=== PATIENT | female | born 2000 | race African-American/Black ===

== ENCOUNTER 2018-05-23 13:29 | Emergency (ER) | payer MEDICAID ==
[~2018-05-23] VITALS: Ht 165.1 cm; Wt 59.0 kg
[2018-05-23 13:30] VITALS: BP 128/67
--- NOTE | 2018-05-23 13:30 | NUR ---
ED Nurse Note: pt brought in by EMS per EMS report pt was actively seizing but unable to state how long, tonic clonic activity noted. EMS states that pt does have aura prior to having seizure. pt hx seizure used to take keppra but now takes different medication but unable to state which and has been noncompliant with sz meds for about three wks. last known sz was three wks ago. pt AA&ox4, gcs=15, +trinh, skin warm and dry, resp even and unlabored on RA, airway intact, -n/v/d, strength BLE/BUE +5. Will cont monitor. NSR on monitoring and evaluation advisor. pt advised to notify staff if needed assist, warm blanket provided for comfort.
[2018-05-23] MEDS ORDERED: Lacosamide 50mg tablet ORAL STA (13:53)
[2018-05-23 14:00] LABS: BASOPHILS % (AUTO) 1.8 % (0.0-2.0); EOSINOPHILS % (AUTO) 0.2 % (0.0-3.0); HEMATOCRIT 40.9 % (37.0-47.0); HEMOGLOBIN 12.7 G/DL (12.0-16.0); LYMPHOCYTES % (AUTO) 15.6 % (20.0-45.0); MEAN CORPUSCULAR VOLUME 85 FL (80-99); MONOCYTES % (AUTO) 4.3 % (1.0-10.0); NEUTROPHILS % (AUTO) 78.1 % (45.0-75.0); PLATELET COUNT 345 K/UL (150-450); RED BLOOD COUNT 4.82 M/UL (4.20-5.40); RED CELL DISTRIBUTION WIDTH 18.7 % (11.6-14.8); WHITE BLOOD COUNT 9.3 K/UL (4.8-10.8)
[2018-05-23] MEDS ORDERED: LORazepam Inj 2mg/ml 1ml IV ONE (14:00)
--- NOTE | 2018-05-23 14:01 | Emergency Room Report ---
History of Present Illness General Chief Complaint: Seizure Source: Patient Present Illness HPI Patient presents after generalized tonic clonic seizure. She says she's been not completely compliant with her medication. She apparently is taking Vimpat at this time. She's complaining about a headache. She did not bite her tongue and she denies any other pain in her body. She doesn't think she is at this time. She denies any drugs. The patient's been feeling depressed to get she's not working at this time. She 's been tearful and denies suicidal or homicidal ideation. She feels safe at home. She denies fevers, chills, nausea, vomiting, diarrhea, chest pain, shortness of breath, cough. Allergies: Coded Allergies: AMOXICILLIN (Verified Allergy, Unknown, 05/23/18) PENICILLINS (Verified Allergy, Unknown, 05/23/18) Patient History Past Medical History: see triage record Social History: Reports: drug use - THC; Denies: alcohol use Social History Narrative at home with family Last Menstrual Period: unknown Reviewed Nursing Documentation: PMH: Agreed; PSxH: Agreed Nursing Documentation-PMH Past Medical History: No History, Except For Hx Seizures: Yes Review of Systems All Other Systems: negative except mentioned in HPI Physical Exam Vital Signs Date Time Temp Pulse Resp B/P (MAP) Pulse Ox O2 Delivery O2 Flow Rate FiO2 05/23/18 13:23 97.9 73 16 130/90 97 Room Air Sp02 EP Interpretation: reviewed, normal General Appearance: well appearing, no apparent distress, GCS 15 Head: normocephalic, atraumatic Eyes: bilateral eye normal inspection, bilateral eye PERRL, bilateral eye EOMI ENT: moist mucus membranes - no oral trauma Neck: supple, no bony tend Respiratory: lungs clear, normal breath sounds Cardiovascular #1: regular rate, rhythm Cardiovascular #2: 2+ radial (R) Gastrointestinal: normal inspection, normal bowel sounds, non tender, no mass, non-distended Musculoskeletal: back normal, normal range of motion Neurologic: alert, oriented x3, ventilated rib fitter III-XII nml as tested, motor strength/tone normal, DTRs symmetric, sensory intact, cerebellar normal, speech normal Psychiatric: no suicidal/homicidal ideation, depressed affect Skin: normal inspection, warm/dry Medical Decision Making Diagnostic Impression: Primary Impression: Seizure ER Course Patient presents after having a generalized seizure with questionable compliance. Differential includes subtherapeutic medication level, electrolyte imbalance, other etiologies are less likely. Patient be evaluated with labs. CT is not indicated based on her neurologic exam at this time. Also her chest is clear and chest x-ray is not indicated. The patient is placed on a nuclear monitoring technician will be given a dose of Ativan and also Vimpat. She will also be given a dose of Tylenol for the headache. EKG without injury. Labs unremarkable. Patient improved with treatment. Headache is resolved. Repeat neurologic exam grossly normal. Discussed need for making sure she is compliant with her medications. She is aware of seizure precautions. Patient stable for outpatient observation and treatment. Laboratory Tests Test 05/23/18 13:45 05/23/18 16:19 White Blood Count 9.3 K/UL (4.8-10.8) Red Blood Count 4.82 M/UL (4.20-5.40) Hemoglobin 12.7 G/DL (12.0-16.0) Hematocrit 40.9 % (37.0-47.0) Mean Corpuscular Volume 85 FL (80-99) Mean Corpuscular Hemoglobin 26.3 PG (27.0-31.0) L Mean Corpuscular Hemoglobin Concent 31.0 G/DL (32.0-36.0) L Red Cell Distribution Width 18.7 % (11.6-14.8) H Platelet Count 345 K/UL (150-450) Mean Platelet Volume 7.0 FL (6.5-10.1) Neutrophils (%) (Auto) 78.1 % (45.0-75.0) H Lymphocytes (%) (Auto) 15.6 % (20.0-45.0) L Monocytes (%) (Auto) 4.3 % (1.0-10.0) Eosinophils (%) (Auto) 0.2 % (0.0-3.0) Basophils (%) (Auto) 1.8 % (0.0-2.0) Sodium Level 135 MMOL/L (136-145) L Potassium Level 4.3 MMOL/L (3.5-5.1) Chloride Level 98 MMOL/L (98-107) Carbon Dioxide Level 26 MMOL/L (21-32) Anion Gap 11 mmol/L (5-15) Blood Urea Nitrogen 11 mg/dL (7-18) Creatinine 0.7 MG/DL (0.55-1.30) Estimate Glomerular Filtration Rate > 60 mL/min (>60) Glucose Level 130 MG/DL (74-106) H Calcium Level 9.2 MG/DL (8.5-10.1) Total Bilirubin 0.4 MG/DL (0.2-1.0) Aspartate Amino Transferase (AST) 17 U/L (15-37) Alanine Aminotransferase (ALT) 12 U/L (12-78) Alkaline Phosphatase 68 U/L (46-116) Total Creatine Kinase 77 U/L (26-308) Total Protein 8.4 G/DL (6.4-8.2) H Albumin 4.1 G/DL (3.4-5.0) Globulin 4.3 g/dL Albumin/Globulin Ratio 1.0 (1.0-2.7) Valproic Acid Level < 3 MCG/ML (50-100) L Urine Color Yellow Urine Appearance Slightly cloudy Urine pH 6.5 (4.5-8.0) Urine Specific [place] 1.010 (1.005-1.035) Urine Protein Negative (NEGATIVE) Urine Glucose (UA) Negative (NEGATIVE) Urine Ketones 3+ (NEGATIVE) H Urine Blood Negative (NEGATIVE) Urine Nitrite Negative (NEGATIVE) Urine Bilirubin Negative (NEGATIVE) Urine Urobilinogen Normal MG/DL (0.0-1.0) Urine Leukocyte Esterase 1+ (NEGATIVE) H Urine RBC 0-2 /HPF (0 - 2) Urine WBC 2-4 /HPF (0 - 2) Urine Squamous Epithelial Cells Many /LPF (NONE/OCC) H Urine Bacteria Few /HPF (NONE) Urine HCG, Qualitative Negative (NEGATIVE) Urine Opiates Screen Negative (NEGATIVE) Urine Barbiturates Screen Negative (NEGATIVE) Phencyclidine (PCP) Screen Negative (NEGATIVE) Urine Amphetamines Screen Negative (NEGATIVE) Urine Benzodiazepines Screen Negative (NEGATIVE) Urine Cocaine Screen Negative (NEGATIVE) Urine Marijuana (THC) Screen Positive (NEGATIVE) H EKG Diagnostic Results Rate: bradycardiac ST Segments: no acute changes Rhythm Strip Diag. Results EP Interpretation: yes Rhythm: no PVC's, no ectopy, other - Bradycardia Last Vital Signs Date Time Temp Pulse Resp B/P (MAP) Pulse Ox O2 Delivery O2 Flow Rate FiO2 05/23/18 17:10 98.5 87 16 112/72 99 Room Air Status: improved Disposition: HOME, SELF-CARE Condition: Improved Bib Del Real MD May 23, 2018 14:01
--- NOTE | 2018-05-23 14:07 | NUR ---
ED Nurse Note: noted pt +n/v. ERMD notified obtained order for zofran.
--- NOTE | 2018-05-23 14:15 | NUR ---
ED Nurse Note: pt states she doesn't have to go restroom, unable to get urine specimen at this time, ERMD notified. will try again.
[2018-05-23 14:25] LABS: ANION GAP 11 mmol/L (5-15); BLOOD UREA NITROGEN 11 mg/dL (7-18); CALCIUM 9.2 MG/DL (8.5-10.1); CARBON DIOXIDE 26 MMOL/L (21-32); CHLORIDE 98 MMOL/L (98-107); CREATININE 0.7 MG/DL (0.55-1.30); POTASSIUM 4.3 MMOL/L (3.5-5.1); SODIUM 135 MMOL/L (136-145)
[2018-05-23 14:30] LABS: ALANINE AMINOTRANSFERASE 12 U/L (12-78); ALBUMIN 4.1 G/DL (3.4-5.0); ALKALINE PHOSPHATASE 68 U/L (46-116); ASPARTATE AMINO TRANSFERASE 17 U/L (15-37); BILIRUBIN,TOTAL 0.4 MG/DL (0.2-1.0); CREATINE KINASE 77 U/L (26-308)
--- NOTE | 2018-05-23 15:00 | NUR ---
ED Nurse Note: pt reports feeling better after medication, able to tolerate po water well, will cont monitor.
--- NOTE | 2018-05-23 16:12 | NUR ---
ED Nurse Note: urine sent.
[2018-05-23 16:34] LABS: APPEARANCE,URINE SLIGHTLY CLOUDY; BILIRUBIN, URINE NEGATIVE (NEGATIVE); GLUCOSE, URINE (UA) NEGATIVE (NEGATIVE); KETONES,URINE 3+ (NEGATIVE); LEUKOCYTE ESTERASE ,URINE 1+ (NEGATIVE); NITRITE,URINE NEGATIVE (NEGATIVE); PH,URINE 6.5 (4.5-8.0); PROTEIN,URINE NEGATIVE (NEGATIVE); UROBILINOGEN,URINE NORMAL MG/DL (0.0-1.0)
[2018-05-23 16:35] LABS: COLOR,URINE YELLOW
[2018-05-23 17:10] VITALS: BP 112/72
--- NOTE | 2018-05-23 17:12 | NUR ---
ED Nurse Note: Patient is being discharged from medical care. Awake, alert and oriented x3. All medical devices such as IV and ID band were removed. Patient ambulated out with all personal belongings with steady gait.
--- NOTE | 2018-05-24 15:13 | Cardiology Report ---
APPROVED REPORT EKG Measurement Heart [id number] CO [id number] Sinus bradycardia Otherwise normal ECG
== END 2018-05-23 20:32 | disposition home or self-care (01) ==
LOC: EDBD 13:29 → EMR 13:59
DX: G40.409 Other generalized epilepsy and epileptic syndromes, not intractable, without status epilepticus (principal); Z88.0 Allergy status to penicillin
CPT/HCPCS: 36415; 80053; 80164; 80307; 81003; 81025; 82550; 85025; 93005; 96374; 96375; 99284; J2405; J7040

== ENCOUNTER 2018-08-02 09:54 | Emergency (ER) | payer MEDICAID ==
[~2018-08-02] VITALS: Ht 162.6 cm; Wt 54.4 kg
[2018-08-02 10:05] VITALS: BP 139/86
--- NOTE | 2018-08-02 10:06 | NUR ---
ED Nurse Note: BROUGHT IN BY MOTHER FROM HOME DUE TO HEADACHE AND STOMACHE SINCE THIS MORNING. PER PT, THESE ARE THE SYMPTOMS BEFORE SHE HAVE A SEIZURE. PT STATES THAT SHE IS NOT COMPLIANT WITH WITH HER SEIZURE MEDS AND SMOKE MARIJUANA.
[2018-08-02] MEDS ORDERED: Lacosamide 50mg tablet ORAL ONE (10:30)
--- NOTE | 2018-08-02 10:48 | NUR ---
ED Nurse Note: spoke with Jameson from Pharmacy regarding vimpat med, was told to come in 5 min to pick it up
[2018-08-02 11:11] LABS: BASOPHILS % (AUTO) 1.6 % (0.0-2.0); EOSINOPHILS % (AUTO) 1.1 % (0.0-3.0); HEMATOCRIT 37.2 % (37.0-47.0); HEMOGLOBIN 11.7 G/DL (12.0-16.0); LYMPHOCYTES % (AUTO) 19.3 % (20.0-45.0); MEAN CORPUSCULAR VOLUME 84 FL (80-99); MONOCYTES % (AUTO) 5.2 % (1.0-10.0); NEUTROPHILS % (AUTO) 72.8 % (45.0-75.0); PLATELET COUNT 365 K/UL (150-450); RED BLOOD COUNT 4.42 M/UL (4.20-5.40); RED CELL DISTRIBUTION WIDTH 17.6 % (11.6-14.8); WHITE BLOOD COUNT 8.2 K/UL (4.8-10.8)
[2018-08-02 11:17] LABS: ANION GAP 8 mmol/L (5-15); BLOOD UREA NITROGEN 7 mg/dL (7-18); CARBON DIOXIDE 27 MMOL/L (21-32); CHLORIDE 102 MMOL/L (98-107); CREATININE 0.7 MG/DL (0.55-1.30); POTASSIUM 4.2 MMOL/L (3.5-5.1); SODIUM 137 MMOL/L (136-145)
[2018-08-02 11:22] LABS: ALANINE AMINOTRANSFERASE 16 U/L (12-78); ALBUMIN 3.8 G/DL (3.4-5.0); ALBUMIN/GLOBULIN RATIO 0.9 (1.0-2.7); ALKALINE PHOSPHATASE 62 U/L (46-116); ASPARTATE AMINO TRANSFERASE 16 U/L (15-37); BILIRUBIN,TOTAL 0.4 MG/DL (0.2-1.0)
[2018-08-02] MEDS ORDERED: Capsaicin 0.075% Cream TOPIC ONE (13:00)
[2018-08-02 13:05] LABS: APPEARANCE,URINE CLEAR; BILIRUBIN, URINE NEGATIVE (NEGATIVE); COLOR,URINE PALE YELLOW; GLUCOSE, URINE (UA) NEGATIVE (NEGATIVE); KETONES,URINE 1+ (NEGATIVE); LEUKOCYTE ESTERASE ,URINE 1+ (NEGATIVE); NITRITE,URINE NEGATIVE (NEGATIVE); PH,URINE 7 (4.5-8.0); PROTEIN,URINE NEGATIVE (NEGATIVE); UROBILINOGEN,URINE NORMAL MG/DL (0.0-1.0)
[2018-08-02] MEDS ORDERED: VIMPAT50 MG PO (13:13)
[2018-08-02 13:36] VITALS: BP 130/94
--- NOTE | 2018-08-02 13:40 | NUR ---
ED Nurse Note: PT GIVEN ACI AND SCRIPT VERBALIZED UNDERSTANDING AMBULATED OUT OF ER WITH STRONG STEADY GAITE MOTHER AT SIDE.
--- NOTE | 2018-08-02 16:15 | Emergency Room Report ---
History of Present Illness General Chief Complaint: Headache Source: Patient Present Illness HPI She is a 18-year-old female presented after increased headache. Patient gradual onset of symptoms. She reports having increased nausea without vomiting. Patient states she has had prior history of seizure disorder and had previously been prescribed Vimpat. Patient was reportedly noncompliant with her medications. She states she had not taken her medications for several weeks. Patient states that she smokes marijuana daily. She had recent episodes of marijuana hyperemesis.She denies any vomiting. She reports having some prior history of dysuria Allergies: Coded Allergies: AMOXICILLIN (Verified Allergy, Unknown, 05/23/18) PENICILLINS (Verified Allergy, Unknown, 05/23/18) Patient History Past Medical History: see triage record Last Menstrual Period: 07/29/18 Now: No Reviewed Nursing Documentation: PMH: Agreed; PSxH: Agreed Nursing Documentation-PMH Past Medical History: No History, Except For Hx Seizures: Yes Review of Systems All Other Systems: negative except mentioned in HPI Physical Exam Vital Signs Date Time Temp Pulse Resp B/P (MAP) Pulse Ox O2 Delivery O2 Flow Rate FiO2 08/02/18 10:01 97.5 54 20 132/69 98 Room Air Sp02 EP Interpretation: reviewed, normal General Appearance: normal inspection, well appearing, no apparent distress, alert, GCS 15, non-toxic Head: atraumatic ENT: normal ENT inspection, hearing grossly normal, normal voice Neck: normal inspection, full range of motion, supple, no bony tend Respiratory: normal inspection, lungs clear, normal breath sounds, no respiratory distress, no retraction, no wheezing Cardiovascular #1: regular rate, rhythm, no edema Gastrointestinal: normal inspection, normal bowel sounds, non tender, soft, no guarding, no hernia Genitourinary: no CVA tenderness Musculoskeletal: normal inspection, back normal, normal range of motion Neurologic: normal inspection, alert, oriented x3, responsive, rn float III-XII nml as tested, speech normal Psychiatric: normal inspection, judgement/insight normal, mood/affect normal Skin: normal inspection, normal color, no rash Medical Decision Making Diagnostic Impression: Primary Impression: Headache Additional Impression: Seizure disorder ER Course Patient presented for headache. Differential diagnosis include was not limited to migraine headache, urinary tract infection, dehydration, marijuana hyperemesis among others. Because of complexity of patient's case laboratory testing and imaging studies were ordered. Laboratory studies were unremarkable. Patient was not noted to have any evidence of recurrent urinary infection. Patient was advised marijuana cessation. She was advised not to drive a motor vehicle. Patient given prescription for Vimpat. She is advised to return if she had any worsening condition or other concerns. Labs Test 08/02/18 10:53 08/02/18 12:50 White Blood Count 8.2 K/UL (4.8-10.8) Red Blood Count 4.42 M/UL (4.20-5.40) Hemoglobin 11.7 G/DL (12.0-16.0) Hematocrit 37.2 % (37.0-47.0) Mean Corpuscular Volume 84 FL (80-99) Mean Corpuscular Hemoglobin 26.6 PG (27.0-31.0) Mean Corpuscular Hemoglobin Concent 31.6 G/DL (32.0-36.0) Red Cell Distribution Width 17.6 % (11.6-14.8) Platelet Count 365 K/UL (150-450) Mean Platelet Volume 6.9 FL (6.5-10.1) Neutrophils (%) (Auto) 72.8 % (45.0-75.0) Lymphocytes (%) (Auto) 19.3 % (20.0-45.0) Monocytes (%) (Auto) 5.2 % (1.0-10.0) Eosinophils (%) (Auto) 1.1 % (0.0-3.0) Basophils (%) (Auto) 1.6 % (0.0-2.0) Sodium Level 137 MMOL/L (136-145) Potassium Level 4.2 MMOL/L (3.5-5.1) Chloride Level 102 MMOL/L (98-107) Carbon Dioxide Level 27 MMOL/L (21-32) Anion Gap 8 mmol/L (5-15) Blood Urea Nitrogen 7 mg/dL (7-18) Creatinine 0.7 MG/DL (0.55-1.30) Estimat Glomerular Filtration Rate > 60 mL/min (>60) Glucose Level 103 MG/DL (74-106) Calcium Level 9.0 MG/DL (8.5-10.1) Total Bilirubin 0.4 MG/DL (0.2-1.0) Aspartate Amino Transf (AST/SGOT) 16 U/L (15-37) Alanine Aminotransferase (ALT/SGPT) 16 U/L (12-78) Alkaline Phosphatase 62 U/L (46-116) Total Protein 8.0 G/DL (6.4-8.2) Albumin 3.8 G/DL (3.4-5.0) Globulin 4.2 g/dL Albumin/Globulin Ratio 0.9 (1.0-2.7) Urine Color Pale yellow Urine Appearance Clear Urine pH 7 (4.5-8.0) Urine Specific [place] 1.010 (1.005-1.035) Urine Protein Negative (NEGATIVE) Urine Glucose (UA) Negative (NEGATIVE) Urine Ketones 1+ (NEGATIVE) Urine Blood 5+ (NEGATIVE) Urine Nitrite Negative (NEGATIVE) Urine Bilirubin Negative (NEGATIVE) Urine Urobilinogen Normal MG/DL (0.0-1.0) Urine Leukocyte Esterase 1+ (NEGATIVE) Urine RBC 2-4 /HPF (0 - 2) Urine WBC 0-2 /HPF (0 - 2) Urine Squamous Epithelial Cells Occasional /LPF Urine Bacteria Moderate /HPF (NONE) Urine HCG, Qualitative Negative (NEGATIVE) Last Vital Signs Date Time Temp Pulse Resp B/P (MAP) Pulse Ox O2 Delivery O2 Flow Rate FiO2 08/02/18 13:36 101 18 130/94 96 Room Air 08/02/18 10:05 97.5 Status: improved Disposition: HOME, SELF-CARE Condition: Stable Scripts Lacosamide (VIMPAT) 50 Mg Tablet 50 MG PO TWICE A DAY, #20 TAB Prov: Main Pena MD 08/02/18 Patient Instructions: General Headache Without Cause Additional Instructions: Do not drive a car until cleared by your neurologist. Follow up with your neurologist. Main Pena MD Aug 02, 2018 16:15
== END 2018-08-02 13:41 | disposition home or self-care (01) ==
LOC: EMR 10:15
DX: R51 Headache (principal); G40.909 Epilepsy, unspecified, not intractable, without status epilepticus; Z88.0 Allergy status to penicillin
CPT/HCPCS: 36415; 80053; 81001; 81025; 85025; 87086; 99284

== ENCOUNTER 2018-10-13 17:11 | Emergency (ER) | payer MEDICAID ==
[~2018-10-13] VITALS: Ht 167.6 cm; Wt 63.5 kg
[~2018-10-13 17:11] MED LIST: VIMPAT50 MG PO
--- NOTE | 2018-10-13 17:11 | NUR ---
ED Nurse Note: Patient brought in by ambulace RA 26 s/p tonic clonic seizure, lasted about 90 seconds per mother who witnessed, patient was on the couch. Mother denies any trauma per EMS. patient is not compliant with Keppra. patient is post ictal at this time.
[2018-10-13] MEDS ORDERED: LORazepam Inj 2mg/ml 1ml ONE (17:15)
[2018-10-13] MEDS ORDERED: LORazepam Inj 2mg/ml 1ml IV ONE (17:15)
[2018-10-13] MEDS ORDERED: levETIRAcetam 500 MG in D5W 110 ML IV ONE (17:15)
--- NOTE | 2018-10-13 17:15 | NUR ---
ED Nurse Note: patient had anther seizure activity, tonic clonic, lasted about 35 seconds, notified Dr. Del Real, new orders received will carry on.
--- NOTE | 2018-10-13 17:18 | Emergency Room Report ---
History of Present Illness General Chief Complaint: Seizure Source: EMS Present Illness HPI Patient had a generalized tonic-clonic seizure which lasted a minute and a half while on a couch witnessed by mother. Patient has a history of seizures. She also has a history of noncompliance with Keppra. There is no trauma. Accu- Chek in the field was normal. The patient has been postictal during the EMS encounter. Discussion with Mom, she states patient did not tolerate Keppra well. Mom states she has never had two seizures in a row. Also that never this severe ( "hard"). Seizure treated here in May. At that time she was taking Vimpat. Mom is unsure what medicine she is on at this time. Allergies: Coded Allergies: AMOXICILLIN (Verified Allergy, Unknown, 05/23/18) PENICILLINS (Verified Allergy, Unknown, 05/23/18) Patient History Limited by: medical condition Past Medical History: see triage record, old chart reviewed Social History: Denies: smoking, alcohol use, drug use Social History Narrative With mom Now: No Reviewed Nursing Documentation: PMH: Agreed; PSxH: Agreed Nursing Documentation-PMH Past Medical History: No History, Except For Hx Seizures: Yes Review of Systems All Other Systems: limited Physical Exam Vital Signs Date Time Temp Pulse Resp B/P (MAP) Pulse Ox O2 Delivery O2 Flow Rate FiO2 10/13/18 17:03 96 18 104/58 (73) 97 Room Air Sp02 EP Interpretation: reviewed, normal General Appearance: no apparent distress, Postictal Head: normocephalic Eyes: bilateral eye normal inspection, bilateral eye PERRL ENT: moist mucus membranes - no lingual trauma Neck: no bony tend, supple/symm/no masses Respiratory: lungs clear, normal breath sounds Cardiovascular #1: regular rate, rhythm Cardiovascular #2: 2+ radial (R) Gastrointestinal: non tender, decreased bowel sounds Genitourinary: no CVA tenderness Musculoskeletal: digits/nails normal Neurologic: DTRs symmetric, other - post ictal - equivocal toes, min withdrawal to stim, teeth closed Psychiatric: other - post ictal Skin: no rash Medical Decision Making Diagnostic Impression: Primary Impression: Seizure Additional Impressions: UTI (urinary tract infection) Qualified Codes: N30.00 - Acute cystitis without hematuria Noncompliance with antiepileptic medication ER Course The patient presents with a seizure with history of noncompliance. Differential includes breakthrough seizure, seizure with noncompliance, electrolyte imbalance, arrhythmia amongst others. Patient will be evaluated with chest x-ray and labs. Has a history of noncompliance Keppra 500 mg was given IV. 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 His previous imaging has been done CT of the head is not indicated at this time. Repeated neurologic exams indicated. Patient had another generalized tonic-clonic seizure here in the emergency department. Ativan 1 mg was ordered. EKG without injury. Chest x-ray no infiltrate. Labs unremarkable except for pyuria. Rocephin given for pyuria. Patient more awake 18:15. Review of records from [place] - most recent med was Topamax 50 mg BID. Patient fully alert and ambulatory. Less headache. Discussed treatment plan with patient and mother. Discussed the need for neurologic follow-up. Patient stable for outpatient observation and treatment. Laboratory Tests Test 10/13/18 17:22 10/13/18 17:29 White Blood Count 11.2 K/UL (4.8-10.8) H Red Blood Count 4.52 M/UL (4.20-5.40) Hemoglobin 12.1 G/DL (12.0-16.0) Hematocrit 38.2 % (37.0-47.0) Mean Corpuscular Volume 84 FL (80-99) Mean Corpuscular Hemoglobin 26.8 PG (27.0-31.0) L Mean Corpuscular Hemoglobin Concent 31.7 G/DL (32.0-36.0) L Red Cell Distribution Width 15.6 % (11.6-14.8) H Platelet Count 461 K/UL (150-450) H Mean Platelet Volume 5.8 FL (6.5-10.1) L Neutrophils (%) (Auto) 58.2 % (45.0-75.0) Lymphocytes (%) (Auto) 30.0 % (20.0-45.0) Monocytes (%) (Auto) 7.3 % (1.0-10.0) Eosinophils (%) (Auto) 1.3 % (0.0-3.0) Basophils (%) (Auto) 3.2 % (0.0-2.0) H Sodium Level 138 MMOL/L (136-145) Potassium Level 4.0 MMOL/L (3.5-5.1) Chloride Level 100 MMOL/L (98-107) Carbon Dioxide Level 22 MMOL/L (21-32) Anion Gap 16 mmol/L (5-15) H Blood Urea Nitrogen 7 mg/dL (7-18) Creatinine 0.9 MG/DL (0.55-1.30) Estimate Glomerular Filtration Rate > 60 mL/min (>60) Glucose Level 105 MG/DL (74-106) Calcium Level 9.0 MG/DL (8.5-10.1) Total Bilirubin 0.3 MG/DL (0.2-1.0) Aspartate Amino Transferase (AST) 14 U/L (15-37) L Alanine Aminotransferase (ALT) 9 U/L (12-78) L Alkaline Phosphatase 64 U/L (46-116) Total Creatine Kinase 88 U/L (26-308) Total Protein 8.0 G/DL (6.4-8.2) Albumin 4.3 G/DL (3.4-5.0) Globulin 3.7 g/dL Albumin/Globulin Ratio 1.2 (1.0-2.7) Serum Alcohol < 3 mg/dL Urine Color Pale yellow Urine Appearance Slightly cloudy Urine pH 5 (4.5-8.0) Urine Specific [place] 1.025 (1.005-1.035) Urine Protein 2+ (NEGATIVE) H Urine Glucose (UA) Negative (NEGATIVE) Urine Ketones 2+ (NEGATIVE) H Urine Blood 3+ (NEGATIVE) H Urine Nitrite Negative (NEGATIVE) Urine Bilirubin Negative (NEGATIVE) Urine Urobilinogen Normal MG/DL (0.0-1.0) Urine Leukocyte Esterase 2+ (NEGATIVE) H Urine RBC 5-10 /HPF (0 - 2) H Urine WBC 10-15 /HPF (0 - 2) H Urine Squamous Epithelial Cells Moderate /LPF (NONE/OCC) H Urine Bacteria Moderate /HPF (NONE) H Urine Trichomonas Few /HPF (NONE) H Urine HCG, Qualitative Negative (NEGATIVE) Urine Opiates Screen Negative (NEGATIVE) Urine Barbiturates Screen Negative (NEGATIVE) Phencyclidine (PCP) Screen Negative (NEGATIVE) Urine Amphetamines Screen Negative (NEGATIVE) Urine Benzodiazepines Screen Negative (NEGATIVE) Urine Cocaine Screen Negative (NEGATIVE) Urine Marijuana (THC) Screen Positive (NEGATIVE) H EKG Diagnostic Results Rate: tachycardiac Rhythm: NSR ST Segments: no acute changes - Right axis Rhythm Strip Diag. Results EP Interpretation: yes Rhythm: no PVC's, no ectopy, other - Tachycardia Chest X-Ray Diagnostic Results Chest X-Ray Diagnostic Results : Chest X-Ray Ordered: Yes # of Views/Limited/Complete: 1 View Indication: Other EP Interpretation: Yes Interpretation: no consolidation, no effusion, no pneumothorax, other - Hyperinflation and large stomach bubble Impression: No acute disease Electronically Signed by: Electronically signed by Bib Del Real MD Last Vital Signs Date Time Temp Pulse Resp B/P (MAP) Pulse Ox O2 Delivery O2 Flow Rate FiO2 10/13/18 21:12 97.4 81 23 104/78 100 Room Air Status: improved Disposition: HOME, SELF-CARE Condition: Improved Scripts Nitrofurantoin Monohyd/M-Cryst* (MACROBID 100 MG*) 100 Mg Capsule 100 MG ORAL EVERY 12 HOURS, #14 CAP Prov: Bib Del Real MD 10/13/18 Topiramate* (TOPAMAX*) 25 Mg Tablet 50 MG ORAL TWICE A DAY, #120 TAB 0 Refills Prov: Bib Del Real MD 10/13/18 Bib Del Real MD Oct 13, 2018 17:18
[2018-10-13 17:31] VITALS: BP 140/93
[2018-10-13 17:34] LABS: BASOPHILS % (AUTO) 3.2 % (0.0-2.0); EOSINOPHILS % (AUTO) 1.3 % (0.0-3.0); HEMATOCRIT 38.2 % (37.0-47.0); HEMOGLOBIN 12.1 G/DL (12.0-16.0); MEAN CORPUSCULAR VOLUME 84 FL (80-99); MONOCYTES % (AUTO) 7.3 % (1.0-10.0); NEUTROPHILS % (AUTO) 58.2 % (45.0-75.0); PLATELET COUNT 461 K/UL (150-450); RED BLOOD COUNT 4.52 M/UL (4.20-5.40); RED CELL DISTRIBUTION WIDTH 15.6 % (11.6-14.8); WHITE BLOOD COUNT 11.2 K/UL (4.8-10.8)
[2018-10-13 17:44] LABS: ANION GAP 16 mmol/L (5-15); BLOOD UREA NITROGEN 7 mg/dL (7-18); CARBON DIOXIDE 22 MMOL/L (21-32); CHLORIDE 100 MMOL/L (98-107); CREATININE 0.9 MG/DL (0.55-1.30); SODIUM 138 MMOL/L (136-145)
[2018-10-13 17:46] LABS: APPEARANCE,URINE SLIGHTLY CLOUDY; BILIRUBIN, URINE NEGATIVE (NEGATIVE); COLOR,URINE PALE YELLOW; GLUCOSE, URINE (UA) NEGATIVE (NEGATIVE); KETONES,URINE 2+ (NEGATIVE); LEUKOCYTE ESTERASE ,URINE 2+ (NEGATIVE); NITRITE,URINE NEGATIVE (NEGATIVE); PH,URINE 5 (4.5-8.0); PROTEIN,URINE 2+ (NEGATIVE); UROBILINOGEN,URINE NORMAL MG/DL (0.0-1.0)
[2018-10-13 17:50] LABS: ALANINE AMINOTRANSFERASE 9 U/L (12-78); ALBUMIN 4.3 G/DL (3.4-5.0); ALBUMIN/GLOBULIN RATIO 1.2 (1.0-2.7); ALKALINE PHOSPHATASE 64 U/L (46-116); ASPARTATE AMINO TRANSFERASE 14 U/L (15-37); BILIRUBIN,TOTAL 0.3 MG/DL (0.2-1.0); CREATINE KINASE 88 U/L (26-308)
[2018-10-13] MEDS ORDERED: cefTRIAXone 1 GM in NS 55 ML IVPB ONE (18:15)
[2018-10-13 18:56] VITALS: BP 101/71
--- NOTE | 2018-10-13 18:59 | NUR ---
HAND-OFF: Report given to Melody POLANCO. patient is stable on the monitor, mother at beside
--- NOTE | 2018-10-13 19:15 | NUR ---
ED Nurse Note: Patient resting comfortably, diaphoretic, drowsy, exhibits signs of confusion upon awakening. Patient was reoriented and has family member at bedside. Patient is afebrile. Will continue to monitor.
[2018-10-13 19:48] VITALS: BP 104/78
[2018-10-13] MEDS ORDERED: Topiramate 25mg tab ORAL ONE (20:15)
[2018-10-13] MEDS ORDERED: Topiramate 100mg tab ORAL ONE (20:15)
[2018-10-13] MEDS ORDERED: TOPIRAMATE25 MG ORAL (20:28)
[2018-10-13] MEDS ORDERED: NITROFURANTOIN100 M2 ORAL (20:36)
--- NOTE | 2018-10-13 20:45 | NUR ---
ED Nurse Note: Patient s A&Ox4 , patient has no signs of confusion but still feels dreamy. Patient ambulatory with steady gait, able to ambulate to the restroom without assistance.
[2018-10-13 21:12] VITALS: BP 104/78
--- NOTE | 2018-10-13 21:12 | NUR ---
ED Nurse Note: Pt cleared by health care Provider for discharge. DC instructions/prescription was given and explained to pt and verbalized understanding of teachings. All medical deviecs such as ID band removed. Pt is AAO x4, ambulatory and left with all personal belongings. Patient departed accompanied by her mother.
--- NOTE | 2018-10-14 12:08 | Diagnostic Imaging Report ---
Indication: Chest pain Technique: One view of the chest Comparison: none Findings: Lungs and pleural spaces are clear. Heart size is normal Impression: No acute process
== END 2018-10-13 21:12 | disposition home or self-care (01) ==
LOC: EDBD 17:11 → EMR 18:32
DX: G40.909 Epilepsy, unspecified, not intractable, without status epilepticus (principal); N39.0 Urinary tract infection, site not specified; Z91.14 Patient's other noncompliance with medication regimen; Z88.0 Allergy status to penicillin; R00.0 Tachycardia, unspecified
CPT/HCPCS: 36415; 71045; 80053; 80307; 80329; 81003; 81025; 82550; 85025; 87086; 93005; 96361; 96365; 96375; 99284; J0696; J1953

== ENCOUNTER 2018-11-22 14:34 | Emergency (ER) | payer MEDICAID ==
[~2018-11-22] VITALS: Ht 154.9 cm; Wt 56.7 kg
[~2018-11-22 14:34] MED LIST changes: +NITROFURANTOIN100 M2 ORAL; +TOPIRAMATE25 MG ORAL
--- NOTE | 2018-11-22 14:50 | NUR ---
ED Nurse Note: Patient walked into ED c/o n/v for 4 days. patient reports she was recently diagnosed with STD patient is alert awake x4 ambulatory. breathing unlabored and even.
[2018-11-22 16:21] LABS: BASOPHILS % (AUTO) 4.7 % (0.0-2.0); EOSINOPHILS % (AUTO) 0.1 % (0.0-3.0); HEMATOCRIT 41.4 % (37.0-47.0); HEMOGLOBIN 13.9 G/DL (12.0-16.0); MEAN CORPUSCULAR VOLUME 81 FL (80-99); MONOCYTES % (AUTO) 7.5 % (1.0-10.0); NEUTROPHILS % (AUTO) 69.8 % (45.0-75.0); PLATELET COUNT 440 K/UL (150-450); RED CELL DISTRIBUTION WIDTH 14.6 % (11.6-14.8); WHITE BLOOD COUNT 13.7 K/UL (4.8-10.8)
[2018-11-22 16:31] LABS: ANION GAP 14 mmol/L (5-15); BLOOD UREA NITROGEN 10 mg/dL (7-18); CALCIUM 10.1 MG/DL (8.5-10.1); CARBON DIOXIDE 24 MMOL/L (21-32); CHLORIDE 102 MMOL/L (98-107); SODIUM 140 MMOL/L (136-145)
[2018-11-22 16:36] LABS: ALANINE AMINOTRANSFERASE 22 U/L (12-78); ALBUMIN 4.5 G/DL (3.4-5.0); ALKALINE PHOSPHATASE 62 U/L (46-116); ASPARTATE AMINO TRANSFERASE 15 U/L (15-37)
[2018-11-22 17:40] LABS: APPEARANCE,URINE CLEAR; BILIRUBIN, URINE NEGATIVE (NEGATIVE); GLUCOSE, URINE (UA) NEGATIVE (NEGATIVE); KETONES,URINE 4+ (NEGATIVE); LEUKOCYTE ESTERASE ,URINE 3+ (NEGATIVE); NITRITE,URINE NEGATIVE (NEGATIVE); PH,URINE 6.5 (4.5-8.0); PROTEIN,URINE 2+ (NEGATIVE); UROBILINOGEN,URINE 1 MG/DL (0.0-1.0)
[2018-11-22 17:43] LABS: COLOR,URINE YELLOW
--- NOTE | 2018-11-22 17:51 | Emergency Room Report ---
History of Present Illness General Chief Complaint: Vomiting Source: Patient Present Illness HPI 18-year-old female with history of tonic-clonic seizures currently not taking her medication here complaining of 4 days of nausea and vomiting. Patient reports that she had dysuria for months and was not responding to common antibiotics used for UTI. Patient went to the [facility] clinic and was tested for chlamydia and gonorrhea and diagnosed with chlamydia. However as soon as she started taking the 2 tablets of azithromycin 4 days ago she started vomiting profusely. Patient reports that she vomited 2 tablets of azithromycin. Complains of headache, weakness, palpitation, multiple bouts of nonbloody emesis. Patient reports that she last had a seizure over a month ago and came to [facility] and was given a prescription for Topamax. Patient reports that she has not seen a neurologist in years. Has not had epilepsy for several years and was recently permitted to drive. Patient admits to occasional consumption of alcohol. Denies drug use and smoking. Patient is in mild distress. Does not recall her last menstrual period. Has not taken medication for symptom relief. Denies all other associated symptoms. Denies chest pain, dizziness, shortness of breath. Allergies: Coded Allergies: AMOXICILLIN (Verified Allergy, Unknown, 05/23/18) PENICILLINS (Verified Allergy, Unknown, 05/23/18) Patient History Past Medical History: see triage record Past Surgical History: unable to obtain Pertinent Family History: none Last Menstrual Period: 7-20 Now: No Immunizations: UTD Reviewed Nursing Documentation: PMH: Agreed; PSxH: Agreed Nursing Documentation-PM Past Medical History: No History, Except For Hx Seizures: Yes Review of Systems All Other Systems: negative except mentioned in HPI Physical Exam Vital Signs Date Time Temp Pulse Resp B/P (MAP) Pulse Ox O2 Delivery O2 Flow Rate FiO2 11/22/18 14:45 98.4 59 18 142/98 (113) 98 Room Air Sp02 EP Interpretation: reviewed, normal General Appearance: alert, GCS 15, non-toxic, mild distress Head: normocephalic, atraumatic Eyes: bilateral eye normal inspection, bilateral eye PERRL ENT: hearing grossly normal, normal pharynx, no angioedema, normal voice Neck: full range of motion, supple/symm/no masses Respiratory: chest non-tender, lungs clear, normal breath sounds, no wheezing, speaking full sentences Cardiovascular #1: regular rate, rhythm, no edema, no murmur Cardiovascular #2: 2+ radial (R), 2+ radial (L) Gastrointestinal: normal bowel sounds, non tender, soft, non-distended, no guarding, no rebound Rectal: deferred Genitourinary: normal inspection, no CVA tenderness Musculoskeletal: back normal, gait/station normal, normal range of motion, non- tender, calf tenderness Neurologic: alert, oriented x3, responsive, motor strength/tone normal, sensory intact, speech normal Skin: no rash Lymphatic: no adenopathy Medical Decision Making PA Attestation All my diagnosis and treatment plans were reviewed ad discussed with my supervising physician Dr. Rosenberg Diagnostic Impression: Primary Impression: Vomiting Additional Impressions: Seizure disorder Chlamydia ER Course 18-year-old female with history of tonic-clonic seizures currently not taking her medication here complaining of 4 days of nausea and vomiting. Patient reports that she had dysuria for months and was not responding to common antibiotics used for UTI. Patient went to the women's clinic and was tested for chlamydia and gonorrhea and diagnosed with chlamydia. However as soon as she started taking the 2 tablets of azithromycin 4 days ago she started vomiting profusely. Patient reports that she vomited 2 tablets of azithromycin. Complains of headache, weakness, palpitation, multiple bouts of nonbloody emesis. Patient reports that she last had a seizure over a month ago and came to [facility] ER and was given a prescription for Topamax. Patient reports that she has not seen a neurologist in years. Has not had epilepsy for several years and was recently permitted to drive. Patient admits to occasional consumption of alcohol. Denies drug use and smoking. Patient is in mild distress. Does not recall her last menstrual period. Has not taken medication for symptom relief. Denies all other associated symptoms. Denies chest pain, dizziness, shortness of breath. Ddx considered but are not limited to: Vomiting secondary to medication, seizure disorder, epilepsy, chlamydia Vital signs: are WNL, pt. is afebrile H&PE are most consistent with : Vomiting secondary to medication, seizure disorder without epilepsy, chlamydia ORDERS: CBC, CMP, UA, tox screen, urine test, EKG, doxycycline, Zofran ED INTERVENTIONS: NS bolus, Zofran, Pepcid DISCHARGE: At this time pt. is stable for d/c to home. Will provide printed patient care instructions, and any necessary prescriptions. Care plan and follow up instructions have been discussed with the patient prior to discharge. Advised the patient to start doxycycline as unknown how long she has had chlamydia as she was never symptomatic in order to prevent conditions such as PID to start doxycycline right away. I advised the patient to take Zofran to prevent nausea and gave her a prescription for Topamax for 1 month however advised her to follow-up with a neurologist. Patient also has a prescription for metronidazole for trichomoniasis and I advised patient to start that after her nausea has resolved as it may cause more irritation of the GI tract and increased nausea. EKG Diagnostic Results Rate: bradycardiac ST Segments: no acute changes Other Impression No acute ST changes noted Last Vital Signs Date Time Temp Pulse Resp B/P (MAP) Pulse Ox O2 Delivery O2 Flow Rate FiO2 11/22/18 15:45 59 18 Room Air 11/22/18 14:45 98.4 142/98 (113) 98 Disposition: HOME, SELF-CARE Condition: Stable Scripts Topiramate* (TOPAMAX*) 25 Mg Tablet 50 MG ORAL TWICE A DAY for 30 Days, #120 TAB 0 Refills Prov: Dayanna Elias 11/22/18 Ondansetron (Zofran) 4 Mg Tablet 4 MG ORAL Q6H PRN for Nausea & Vomiting, #12 TAB Prov: Dayanna Elias 11/22/18 Doxycycline Hyclate (DOXYCYCLINE HYCLATE) 100 Mg Tablet 100 MG PO BID for 7 Days, #14 TAB Prov: Dayanna Elias 11/22/18 Referrals: NON PHYSICIAN (PCP) Patient Instructions: Chlamydia, Female, [id number], Nausea and Vomiting, Adult, Seizure, Adult, [id number] Additional Instructions: Take medication as directed follow-up with your primary care provider it is essential to take your seizure medication and follow-up with a neurologist. If worsening symptoms return to the emergency room. Dayanna Elias Nov 22, 2018 17:51
[2018-11-22] MEDS ORDERED: ZOFRAN4 M1 ORAL (17:54)
[2018-11-22] MEDS ORDERED: TOPIRAMATE25 MG ORAL (17:54)
[2018-11-22] MEDS ORDERED: DOXYCYCLINE HY100 M6 PO (17:54)
[2018-11-22 17:57] VITALS: BP 128/92
[2018-11-22 18:25] VITALS: BP 128/92
--- NOTE | 2018-11-22 18:25 | NUR ---
ER DISCHARGE NOTE: Patient is cleared to be discharged per VALARIE MONGE, pt is aox4, on room air, with stable vital signs. pt was given dc and prescription instructions, pt was able to verbalize understanding, pt id band and iv site removed without complications. pt is able to ambulate with steady gait. pt took all belongings.
--- NOTE | 2018-11-26 11:17 | Cardiology Report ---
APPROVED REPORT EKG Measurement Heart [id number] Sinus bradycardia Otherwise normal ECG
== END 2018-11-22 18:25 | disposition home or self-care (01) ==
LOC: EMR 15:18
DX: R11.10 Vomiting, unspecified (principal); G40.909 Epilepsy, unspecified, not intractable, without status epilepticus; A74.9 Chlamydial infection, unspecified
CPT/HCPCS: 36415; 80053; 80307; 80329; 81001; 81025; 85025; 93005; 96361; 96374; 96375; 99284; J2405; S0028; J8499

== ENCOUNTER 2018-12-17 15:32 | Emergency (ER) | payer MEDICAID ==
[~2018-12-17] VITALS: Ht 160 cm; Wt 61.2 kg
[~2018-12-17 15:32] MED LIST changes: +DOXYCYCLINE HY100 M6 PO; +KEPPRA500 M4 ORAL; +ZOFRAN4 M1 ORAL
[2018-12-17 15:39] VITALS: BP 108/67
--- NOTE | 2018-12-17 15:40 | NUR ---
ED Nurse Note: Accompanuied by cousin. Arteaga in 3, changed to gabe monitor attached. Addendum: 12/17/18 at 1544 by ZE ED Nurse Note: in attenence. Await instructions regarding required IV access and labs as per instructions. Padded sides insitu
[2018-12-17] MEDS ORDERED: LORazepam Inj 2mg/ml 1ml IV ONE ×2 (16:00→19:00)
--- NOTE | 2018-12-17 16:40 | NUR ---
ED Nurse Note: Ativan prescribed in case but Dr advised that Ativan was only required if patient unable to tolerate IV access - IV access established checked with Dr Ativan not required as IV established without requirement and Dr clarified that medication not required and is aware not given
[2018-12-17 16:51] LABS: BASOPHILS % (AUTO) 1.7 % (0.0-2.0); EOSINOPHILS % (AUTO) 1.8 % (0.0-3.0); HEMATOCRIT 37.8 % (37.0-47.0); HEMOGLOBIN 12.7 G/DL (12.0-16.0); LYMPHOCYTES % (AUTO) 19.9 % (20.0-45.0); MEAN CORPUSCULAR VOLUME 82 FL (80-99); MONOCYTES % (AUTO) 6.3 % (1.0-10.0); NEUTROPHILS % (AUTO) 70.4 % (45.0-75.0); PLATELET COUNT 330 K/UL (150-450); RED CELL DISTRIBUTION WIDTH 15.3 % (11.6-14.8); WHITE BLOOD COUNT 7.8 K/UL (4.8-10.8)
--- NOTE | 2018-12-17 16:53 | NUR ---
ED Nurse Note: Patient monitored. IV fluids in progress. Cousin present. IV access by SHERRI Latham. Labs drawn.
--- NOTE | 2018-12-17 16:58 | NUR ---
ED Nurse Note: Demond states siezure activity unwitnessed. States kalliesin was unaware of what happened but conscious laying on bed on her arrival and therefore she thought the siezure acitivity had just finished.
[2018-12-17 17:02] LABS: ANION GAP 9 mmol/L (5-15); BLOOD UREA NITROGEN 7 mg/dL (7-18); CALCIUM 9.2 MG/DL (8.5-10.1); CARBON DIOXIDE 26 MMOL/L (21-32); CHLORIDE 106 MMOL/L (98-107); CREATININE 0.8 MG/DL (0.55-1.30); POTASSIUM 3.9 MMOL/L (3.5-5.1); SODIUM 141 MMOL/L (136-145)
[2018-12-17 17:06] LABS: ALANINE AMINOTRANSFERASE 11 U/L (12-78); ALKALINE PHOSPHATASE 53 U/L (46-116); ASPARTATE AMINO TRANSFERASE 14 U/L (15-37); BILIRUBIN,TOTAL 0.5 MG/DL (0.2-1.0)
--- NOTE | 2018-12-17 18:20 | NUR ---
ED Nurse Note: Clarified with Dr that Ativan not required as prescribed in the case emar. aware not given and clarified not required and aware not given pre discharge
--- NOTE | 2018-12-17 18:22 | NUR ---
ER DISCHARGE NOTE: Patient is cleared to be discharged per ERMD, pt is aox4, on room air, with stable vital signs. pt was given dc and prescription instructions, mother present pt was able to verbalize understanding, pt id band and iv site removed without complications. pt is able to ambulate with steady gait. pt took all belongings. Patient was able to dress self into jacket. Shoes obtained from car by mother.
--- NOTE | 2018-12-17 18:26 | NUR ---
Note nuhaone in EDM - 12/17/18 at 2017 by LC ER DISCHARGE NOTE: Patient is cleared to be discharged per ERMD, pt is aox4, on room air, with stable vital signs. pt was given dc and prescription instructions, mother present pt was able to verbalize understanding, pt id band and iv site removed without complications. pt is able to ambulate with steady gait. pt took all belongings. Patient was able to dress self into jacket. Shoes obtained from car by mother.
--- NOTE | 2018-12-17 18:26 | NUR ---
Note bo in EDM - 12/18/18 at 1501 by ZE ED Nurse Note: Clarified with that Ativan not required as prescribed in the case emar. aware not given and clarified not required and aware not given pre discharge
--- NOTE | 2018-12-17 18:48 | NUR ---
ED Nurse Note: Patient retruned to ER accompanied by mother and cousin. Patient reportedly has had a siezure in the car. Dr paz
[2018-12-17] MEDS ORDERED: levETIRAcetam 1,000mg/NS100ml 100 ML IVPB ONE (19:00)
--- NOTE | 2018-12-17 21:43 | Emergency Room Report ---
History of Present Illness General Chief Complaint: Seizure Source: Patient, EMS Present Illness HPI 18-year-old female presents ED for evaluation. Brought in by EMS status post seizure. Had a witnessed seizure today at home. While on bed. Upon arrival patient is postictal. Family states that patient has a history of seizures but is not compliant with her medications. Patient states she used to take Keppra but no longer. Used to take Vimpat states that did not work. Does not remember what medication she takes at this time. Admits to marijuana use. Denies any other drug use. Denies falling or hitting her head. No other aggravating relieving factors. Denies any other associated symptoms Allergies: Coded Allergies: AMOXICILLIN (Verified Allergy, Unknown, 05/23/18) PENICILLINS (Verified Allergy, Unknown, 05/23/18) Patient History Past Medical History: seizures Past Surgical History: none Pertinent Family History: none Social History: Reports: drug use; Denies: smoking, alcohol use Last Menstrual Period: yest Now: No Immunizations: UTD Reviewed Nursing Documentation: PMH: Agreed; PSxH: Agreed Nursing Documentation-PMH Hx Seizures: Yes Review of Systems All Other Systems: negative except mentioned in HPI Physical Exam Vital Signs Date Time Temp Pulse Resp B/P (MAP) Pulse Ox O2 Delivery O2 Flow Rate FiO2 12/17/18 15:24 98.2 100 16 52/ 98 Room Air Sp02 EP Interpretation: reviewed, normal General Appearance: no apparent distress, alert, GCS 15, non-toxic, Postictal Head: normocephalic, atraumatic Eyes: bilateral eye normal inspection, bilateral eye PERRL ENT: hearing grossly normal, normal pharynx, no angioedema, normal voice Neck: full range of motion, supple/symm/no masses Respiratory: chest non-tender, lungs clear, normal breath sounds, speaking full sentences Cardiovascular #1: regular rate, rhythm, no edema Cardiovascular #2: 2+ carotid (R), 2+ carotid (L), 2+ radial (R), 2+ radial (L) , 2+ dorsalis pedis (R), 2+ dorsalis pedis (L) Gastrointestinal: normal bowel sounds, non tender, soft, non-distended, no guarding, no rebound Rectal: deferred Genitourinary: normal inspection, no CVA tenderness Musculoskeletal: back normal, gait/station normal, normal range of motion, non- tender Neurologic: alert, oriented x3, responsive, motor strength/tone normal, sensory intact, speech normal Psychiatric: judgement/insight normal, memory normal, mood/affect normal, no suicidal/homicidal ideation Reflexes: 3+ bicep (R), 3+ bicep (L), 3+ tricep (R), 3+ tricep (L), 3+ knee (R) , 3+ knee (L) Lymphatic: no adenopathy Medical Decision Making Diagnostic Impression: Primary Impression: Seizure disorder ER Course Hospital Course 18-year-old F presents to ED status post seizure. h/o seizures Differential diagnosis includes- breakthrough seizure, alcohol abuse, noncompliance with medication Clinical course Patient placed on stretcher. Initial history and physical I ordered labs, IV fluids, ativan Labs-electrolytes okay, no leukocytosis, hemoglobin/hematocrit stable. ETOH negative Patient allowed to rest is now awake alert oriented x3. ambulating without difficulty. discussed findings with patient. Explained the importance of compliance with her medications as well as how marijuana lowers the seizure threshold. Patient states she would prefer to be discharged at this time but is asking for neurology referrals. Family at bedside agrees Diagnosis -seizure disorder stable and discharged to home. Followup with PMD. Return to ED if symptoms recur or worsen Labs Test 12/17/18 16:36 White Blood Count 7.8 K/UL (4.8-10.8) Red Blood Count 4.60 M/UL (4.20-5.40) Hemoglobin 12.7 G/DL (12.0-16.0) Hematocrit 37.8 % (37.0-47.0) Mean Corpuscular Volume 82 FL (80-99) Mean Corpuscular Hemoglobin 27.6 PG (27.0-31.0) Mean Corpuscular Hemoglobin Concent 33.6 G/DL (32.0-36.0) Red Cell Distribution Width 15.3 % (11.6-14.8) Platelet Count 330 K/UL (150-450) Mean Platelet Volume 6.3 FL (6.5-10.1) Neutrophils (%) (Auto) 70.4 % (45.0-75.0) Lymphocytes (%) (Auto) 19.9 % (20.0-45.0) Monocytes (%) (Auto) 6.3 % (1.0-10.0) Eosinophils (%) (Auto) 1.8 % (0.0-3.0) Basophils (%) (Auto) 1.7 % (0.0-2.0) Sodium Level 141 MMOL/L (136-145) Potassium Level 3.9 MMOL/L (3.5-5.1) Chloride Level 106 MMOL/L (98-107) Carbon Dioxide Level 26 MMOL/L (21-32) Anion Gap 9 mmol/L (5-15) Blood Urea Nitrogen 7 mg/dL (7-18) Creatinine 0.8 MG/DL (0.55-1.30) Estimat Glomerular Filtration Rate > 60 mL/min (>60) Glucose Level 93 MG/DL (74-106) Calcium Level 9.2 MG/DL (8.5-10.1) Total Bilirubin 0.5 MG/DL (0.2-1.0) Aspartate Amino Transf (AST/SGOT) 14 U/L (15-37) Alanine Aminotransferase (ALT/SGPT) 11 U/L (12-78) Alkaline Phosphatase 53 U/L (46-116) Total Protein 7.9 G/DL (6.4-8.2) Albumin 4.0 G/DL (3.4-5.0) Globulin 3.9 g/dL Albumin/Globulin Ratio 1.0 (1.0-2.7) Acetaminophen Level < 2 MCG/ML (10-30) Serum Alcohol < 3 mg/dL Last Vital Signs Date Time Temp Pulse Resp B/P (MAP) Pulse Ox O2 Delivery O2 Flow Rate FiO2 12/17/18 16:54 68 16 Room Air 12/17/18 15:39 98.3 108/67 100 Status: improved Disposition: HOME, SELF-CARE Condition: Stable Referrals: [facility],REFERRING (PCP) Cj Yao MD Patient Instructions: Seizure, Adult Tho Huang MD Dec 17, 2018 21:43
[2018-12-18 08:00] VITALS: BP 108/70
--- NOTE | 2018-12-18 08:19 | NUR ---
Note undone in EDM - 12/18/18 at 1502 by ZE ER DISCHARGE NOTE: Note reinserted as per instruction from SHERRI Latham. Patient is cleared to be discharged per ERMD and SHERRI Latham, pt is aox4, on room air, with stable vital signs. pt was given dc and prescription instructions, mother present pt was able to verbalize understanding, pt id band and iv site removed without complications. pt is able to ambulate with steady gait. pt took all belongings. Patient was able to dress self into jacket. Shoes obtained from car by mother.
--- NOTE | 2018-12-18 08:33 | NUR ---
ED Nurse Note: New case opened for patient following reactivation of this case. Triaged by SHERRI Oviedo and retruned to ER. New case opened and this case reclosed.
== END 2018-12-17 18:27 | disposition home or self-care (01) ==
LOC: EDBD 15:32 → EMR 16:20 → CANBEDREQ 19:00 → UNDOADMIN 19:50 → 2E 19:50
DX: G40.909 Epilepsy, unspecified, not intractable, without status epilepticus (principal); Z88.0 Allergy status to penicillin; Z88.1 Allergy status to other antibiotic agents; F12.10 Cannabis abuse, uncomplicated
CPT/HCPCS: 36415; 80053; 80329; 85025; Z7502; 99283

== ENCOUNTER 2018-12-17 18:56 | Inpatient (IN) | payer MEDICAID ==
[~2018-12-17] VITALS: Ht 160 cm; Wt 61.4 kg
[2018-12-17] MEDS ORDERED: LORazepam Inj 2mg/ml 1ml ONE (19:05)
--- NOTE | 2018-12-17 19:08 | NUR ---
ED Nurse Note: Patient retruned to cubicle 3 Glucose 131 on accucheck - new case commenced reentry note placed in previous file. Patient siezing at 19.05 - lorazepam given by SHERRI Latham IV - oxygen applied. SATURATIONS 97%. Suction provided to clear oral secretions via yankeur. O2 applied via face mask sats maintained at 97%. IV access to right ACF via Noa POLANCO.
[2018-12-17 19:13] VITALS: BP 143/79
[2018-12-17] MEDS ORDERED: levETIRAcetam 500 MG in D5W 110 ML IV ONE (19:15)
[2018-12-17] MEDS ORDERED: LORazepam Inj 2mg/ml 1ml IV ONE ×2 (19:15)
--- NOTE | 2018-12-17 19:19 | NUR ---
ED Nurse Note: Strong smell of marajuana noted on patient readmission. SHERRI palma administered medications and commenced IV drip. Dr ireland of [place]. Patient to be admitted.
--- NOTE | 2018-12-17 19:20 | NUR ---
ED Nurse Note: Report given to SHERRI Rodriguez. Patient in bed, semi-william position. Seizure precaution maintained. Patient remained on monitoring analyst. IV to LAC remained intact without redness, swelling.
--- NOTE | 2018-12-17 19:37 | NUR ---
ED Nurse Note: Patient bed changed and patient incontinent of urine - urine sample requested requested permission to straight cath from mum but mum requested we a Addendum: 12/17/18 at 1939 by ZE wait a while to see if patient can urinate self without requirement for catheter
--- NOTE | 2018-12-17 19:45 | NUR ---
ED Nurse Note: Recieved report to resume care, pt lying inb ed, eyes closed, appears post ictal, does awaken but non-conprehensible sounds, on cardiac monitoring, v/s stable, on seizure precautions side rails padded, mother at bedside, no sz activity noted at this time, iv lfuids infusing as ordered, will continue to closely monitor and prepare for hosptal admission.
[2018-12-17 21:30] VITALS: BP 113/75
--- NOTE | 2018-12-17 21:52 | Emergency Room Report ---
History of Present Illness General Chief Complaint: Seizure Source: Family Member Present Illness HPI 18-year-old female presents ED status post seizure. Patient was in car with family in hospital parking lot when she had another seizure witnessed by mother and cousin. Was brought back to the ED. Currently postictal. Patient was just discharged from the hospital. Was evaluated for the seizures. Is currently noncompliant with her medications. Also reported history of marijuana use. No reported fall or head injury. No other aggravating relieving factors. No other associated symptoms Allergies: Coded Allergies: AMOXICILLIN (Verified Allergy, Unknown, 05/23/18) PENICILLINS (Verified Allergy, Unknown, 05/23/18) Patient History Past Medical History: seizures Past Surgical History: none Pertinent Family History: none Social History: Reports: drug use; Denies: smoking, alcohol use Last Menstrual Period: yest Now: No Immunizations: UTD Reviewed Nursing Documentation: PMH: Agreed; PSxH: Agreed Nursing Documentation-PMH Past Medical History: No History, Except For Hx Seizures: Yes Review of Systems All Other Systems: limited Physical Exam Vital Signs Date Time Temp Pulse Resp B/P (MAP) Pulse Ox O2 Delivery O2 Flow Rate FiO2 12/17/18 19:00 72 18 Room Air 100 12/17/18 19:02 143/79 (100) 100 12/17/18 19:13 10.0 Sp02 EP Interpretation: reviewed, normal General Appearance: no apparent distress, Postictal Head: normocephalic Eyes: bilateral eye normal inspection, bilateral eye PERRL ENT: normal ENT inspection Neck: normal inspection Respiratory: chest non-tender, lungs clear, normal breath sounds, speaking full sentences Cardiovascular #1: regular rate, rhythm, no edema Gastrointestinal: normal bowel sounds, non tender, soft, non-distended, no guarding, no rebound Rectal: deferred Genitourinary: no CVA tenderness Musculoskeletal: normal inspection Neurologic: other - postictal Psychiatric: other - postical Skin: no rash Lymphatic: normal inspection Medical Decision Making Diagnostic Impression: Primary Impression: Seizure disorder Additional Impression: Patient's noncompliance with other medical treatment and regimen ER Course Hospital Course 18-year-old F presents to ED status post seizure. Differential diagnosis includes- breakthrough seizure, alcohol abuse, noncompliance with medication Clinical course Patient placed on stretcher. Initial history and physical I ordered IV ativan, EKG, Keppra Labs from prior visit today-electrolytes okay, no leukocytosis, hemoglobin/ hematocrit stable EKG - sinus tachycardia no acute ischemic changes interpreted by me given Ativan, IV fluids, given IV Keppra. Tachycardia resolving after IV fluids , Ativan Case discussed with Dr. Paiz and he agreed to accept the patient to his service for further care and support. i. I feel this is a highly complex case requiring extensive working including EKG/Rhythm strip, Xray/CT/US, Blood/urine lab work, repeat exams while in ED, and administration of strong opiates/narcotics for pain control, admission to hospital or close patient follow up. Diagnosis - seizure, noncompliance with medication admitted to telemetry in serious condition see prior visit for labs EKG Diagnostic Results Rate: tachycardiac Rhythm: NSR ST Segments: no acute changes ASA given to the pt in ED: No Rhythm Strip Diag. Results EP Interpretation: yes Rhythm: NSR, no PVC's, no ectopy Last Vital Signs Date Time Temp Pulse Resp B/P (MAP) Pulse Ox O2 Delivery O2 Flow Rate FiO2 12/17/18 19:13 73 16 143/79 97 Simple Mask 10.0 12/17/18 19:00 100 Status: improved Disposition: ADMITTED INPATIENT Condition: Serious Referrals: NON PHYSICIAN (PCP) Tho Huang MD Dec 17, 2018 21:52
--- NOTE | 2018-12-17 22:10 | NUR ---
ED Nurse Note: Placed call to floor nurse JoselinRN for report, all pertinent info given, pt is in bed more awake and alert, oriented to pace and time, cant recall event, iv site patent, denies pain, no sob or labored breathing, pt is clean and dry, mother and pt continnues to refuse straight cath for urine sample, is aware, pt being taken to floor unit via gurney with acls protcols, nad noted during pt transport via acls protocols with re and er-tech.
--- NOTE | 2018-12-17 23:15 | NUR ---
NURSE NOTES: Pt receive from SHERRI Rodriguez alert and oriented x4 with no acute s/s of distress noted. Calm and cooperative, able to follow commands. With Mom at bedside. IV site asymptomatic and patent on L ac 20g, saline lock. Skin intact upon admission. Belongings with patient upon transfer - earrings, necklace, iphone, clothes. Per Mom, pt has not been taking her medications, educated family and pt about the necessity of taking seizure medications to prevent and reduce further seizure events, pt and family requires further teaching and education. VSS - 127/75, 93 HR, 98.5 temp, 18 RR, 5/10 pain on bilateral hips aching. Pt ambulatory, able to walk to the BSC and bathroom with minimal assistance. Seizure precautions implemented - side rails padded, oxygen and suction at bedside. Bed alarm on, bed in lowest position. Call light and belongings within reach. Personal Development Mentor on - Sinus Rhythm 87.
[2018-12-17 23:18] VITALS: BP 127/75
--- NOTE | 2018-12-17 23:18 | NUR ---
NURSE NOTES: Left message for Dr. Paiz regarding admission orders. Will continue to monitor pt.
--- NOTE | 2018-12-17 23:25 | NUR ---
NURSE NOTES: Endorsed home meds to Dr. Paiz. Per Dr. Paiz: - pls continue Keppra 500 mg PO BID, Topamax 25 mg PO BID - NPO except ice chips and meds - Full code - SCDs - Ativan 1 mg IV PRN q1h for seizures - Phys consult - Dr. Lopez for neuro (Inform him of any new seizures and contact Dr. Duke if he does not respond and pt has another seizure) - Tylenol 650 mg PO PRN q4h for mild pain and temp over 100.5 - Seizure precautions
[2018-12-17] MEDS ORDERED: LORazepam Inj 2mg/ml 1ml IV PRN (23:45)
[2018-12-18 04:00] VITALS: BP 104/56
--- NOTE | 2018-12-18 07:30 | NUR ---
HAND-OFF: Report given to SHERRI Flores. Plan of care endorsed.
--- NOTE | 2018-12-18 07:36 | NUR ---
NURSE NOTES: Received report from SHERRI Cohen. The patient is sleeping on the bed without acute distress or shortness of breath. The patient's bed in the lowest position, call light in reach, and fall, aspiration, and seizure precaution reinforced. IV site on L AC 20G intact and patent. No seizure noted during assistant shift supervisor per SHERRI Cohen. Will continue to monitor the patient. Will continue plan of care.
[2018-12-18 08:00] VITALS: BP 108/70
[2018-12-18] MEDS: Topiramate 25mg tab ORAL SCH ×2 (08:21→17:05)
--- NOTE | 2018-12-18 10:28 | NUR ---
NURSE NOTES: The patient is stable without acute distress or shortness of breath. No seizure noted. Will continue plan of care.
--- NOTE | 2018-12-18 11:11 | NUR ---
Social Service Note ARA met with patient to assess for homelessness and substance abuse. Patient is alert, oriented and verbally responsive. Patient states she never indicated that she was homeless to a physician and or nurse. Patient lives with her mother and return to prior living arrangements upon discharge. ARA discuss with Dr. Paiz. Patient admits to smoking THC and indicated it is legal in [place]. ARA reiterated MD concern with continuous use of THC. Patient indicated understanding. Patient states she hasn't followed up with her primary as she should and indicated she has a schedule medical appointment on November 26 which she will attend. Upon discharge patient will have family pick her up and transport home.
--- NOTE | 2018-12-18 11:42 | NUR ---
NURSE NOTES: Dr. Paiz change the diet from NPO except meds to regular diet mechanical soft. Carried out the order. Will continue plan of care.
[2018-12-18 12:00] VITALS: BP 117/77
--- NOTE | 2018-12-18 15:06 | NUR ---
CASE MANAGEMENT:REVIEW 18 YR OLD FEMALE PRESENTED TO ER BY MOTHER CC: WITNESSED SEIZURE SI: SEIZURE 98.2 85 16 113/75 99% ON RA URINE POSITIVE FOR THC IS: IV KEPPRA IV ATIVAN X2 1L NS BOLUS : TO TELEMETRY UNIT
[2018-12-18 16:00] VITALS: BP 98/72
--- NOTE | 2018-12-18 18:32 | NUR ---
NURSE NOTES: The patient is stable without seizure at this time. Will continue to monitor the patient. Will continue plan of care.
--- NOTE | 2018-12-18 18:51 | Cardiology Report ---
APPROVED REPORT EKG Measurement Heart [id number] VA 96P [id number] Sinus tachycardia with short VA Nonspecific ST abnormality Abnormal ECG
--- NOTE | 2018-12-18 19:10 | NUR ---
HAND-OFF: Report given to SHERRI Moore. The patient is being assessed by Dr. Lopez at the bedside. The patient's bed in the lowest position, call light in reach, and fall, aspiration, and seizure precaution reinforced. IV site on L AC intact and patent. No seizure noted during the shift. Endorsed plan of care.
--- NOTE | 2018-12-18 19:30 | NUR ---
NURSE NOTES: Received patient from Sandra POLANCO. Patient anxious and wanted to leave. Informed the patient that I must contact Dr. Paiz and if Dr. Paiz wants to keep her here for another day, she will need to sign out AMA and she will not be receiving any prescriptions. Patient's family at bedside. Attempted to contact Dr. Paiz regarding patient's desire to leave. Patient became agitated and grabbed the AMA paperwork from my hand and my pen and signed the paper. Patient was yelling at staff. "I want to leave!" Instructed patient that we need to take out her IV. Patient became more agitated and yelled "I'll take the IV out myself." Patient walked away and refused to have staff remove IV. Security was called. Patient continued to walk away from security yelling at staff refusing to have IV removed. Then Patient wanted family member to remove IV, security instructed her that she cannot do that. Finally patient allowed staff to remove IV while yelling at the nurse. As soon as IV was removed, patient walked away with family and left the unit.
--- NOTE | 2018-12-18 19:45 | NUR ---
NURSE NOTES: Patient left the unit at 1945.
--- NOTE | 2018-12-18 23:45 | Consultation ---
DATE OF CONSULTATION: 12/18/2018 CONSULTING PHYSICIAN: Nick Lopez M.D. CHIEF COMPLAINT: This is the first [facility] admission for this 18-year-old right-handed woman with a seizure history going back at least 2 years. The patient was admitted with recurrent seizures yesterday. The patient was seen in the emergency room. The patient has history of seizures for the past 2 years. She used to be a heavy drinker, but has not had alcohol for 2 months. The patient had 1 seizure. The patient over time has had EEGs and CT scan of the brain. No MRIs. According to the patient, they are abnormal, but she cannot tell me how they were abnormal. The patient sees another neurologist who she does not particularly care for. She has been on Keppra and Vimpat, possibly Topamax as well. However, she stops taking her medication. The patient was in the emergency room yesterday after seizure when she was in the car. It is a generalized tonic-clonic seizure. The patient was just discharged from the hospital. The patient then had 2 other seizures and was brought back to the emergency room and admitted. The patient had a CBC, which is basically normal. Toxicology screen was negative except for marijuana. The chemistries were normal except for a low AST and ALT. The patient was placed on Keppra 500 mg b.i.d. and Topamax 50 mg b.i.d. The patient is leaving tonight against medical advice. The patient was admitted to [facility] at the "[facility]" probably for suicidal attempt. She only has headaches after seizures. Otherwise, has no history of headaches. There is no history of muscle weakness, paresthesias, dysesthesias except perhaps with Topamax or Keppra. She denies any diplopia, hearing loss, tinnitus, or dizzy spells. She has back pain "off and on." There is no history of syphilis, gonorrhea, sickle cell disease, thyroid disease, heart disease. Her blood pressure is normal. There is no other tremors or shakes, loss of bowel or bladder function. She had 1 seizure with a bitten tongue on the right lateral side. She has myalgias postictally and some confusion and lethargy. There is no family history of epilepsy. Her father had a stroke. PAST MEDICAL HISTORY/PAST MEDICAL ILLNESSES: Essentially none. ALLERGIES: She is allergic to dust. SOCIAL HISTORY: She is unmarried, not working. Has no children. MEDICATIONS: See above. FAMILY HISTORY: Parents and siblings in good health. SURGERIES: None. REVIEW OF SYSTEMS: She has decreased appetite, has lost 23 pounds recently. PHYSICAL EXAMINATION: GENERAL: She is well-developed, well-nourished woman in no acute distress. VITAL SIGNS: Blood pressure is 98/72, pulse 71 and regular, temperature is 98.6 degrees. The rest of the general examination is normal. NEUROLOGIC EXAMINATION: MENTAL STATUS: She is alert and awake. Her judgment was not tested. Affect is appropriate. Memory, immediate recall was 3/3 objects. Past memory was intact in mother's maiden name and birthday. Recent recall is 2/3 objects in 5 minutes. Intellect similarities, cat and dog are not not similar. Train and bicycle, "you can move on them." ORIENTATION: Date, she knows 12/18/2018. Place, she knows is at [facility] second floor. She is oriented to person. She could spell world backwards normally. CRANIAL NERVES EXAMINATION: Cranial nerves II through XII are normal. Pupils are equal, round, reactive to light 4 mm. Fundi were not visualized. MUSCLE EXAMINATION: Muscle bulk and tone are normal. Strength 5/5 proximally and distally in the pronator drift. Reflexes are +2 in the upper and lower extremities and downgoing toes on testing for Babinski response. COORDINATION: Gfsavt-bz-rhsh, ativ-ac-kvyk testing, rapid alternating movements are normal. GAIT AND STATION: Normal based gait. Heel-toe tandem walk is normal. Romberg is negative. SENSORY EXAMINATION: Sensation intact to pinprick, proprioception, vibration, fine touch. IMPRESSION: This patient has a history of probable focal seizures with secondary generalization. I could not get a good history of complex partial seizures. The etiology is unclear. There is no history of febrile seizures when she was a child. No significant head traumas or strokes or other problems. The reason why she is having breakthrough seizures is because she does not take medicine. The patient wants to sign out, which is fine. 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 She is only receiving 1 medication. She is to increase Keppra up to 3 g a day. PLAN: 1. Continue Keppra 500 mg p.o. b.i.d. 2. You can taper the Topamax. 3. The patient is to see her neurologist on outpatient tomorrow and to get her prescriptions. Thank you for this interesting case. Nick Lopez MD DR: BRANDO JOB#: [id number] CC:
--- NOTE | 2018-12-19 00:30 | Consultation ---
DATE OF CONSULTATION: CONSULTING PHYSICIAN: Yokasta Duke M.D. HISTORY OF PRESENT ILLNESS: This is a 18-year-old female with a history of seizure who is admitted to the hospital after having a seizure. The patient apparently was in the car with family in the hospital parking lot. She had another seizure. The patient was brought back to the emergency room and was admitted for more evaluation. When I entered the room, the patient's family. The patient was asking to be discharged. The patient was not anxious. Did not have any depressive manic symptoms. Her system is positive for cannabis. The patient has good insight into her current condition. No suicidal or homicidal ideation. MENTAL STATUS EXAMINATION: The patient is alert, oriented times self, place, and situation. Mood is neutral. Affect is full range, congruent with mood. Thought process is linear and goal oriented. Thought content, no suicidal or homicidal ideation. ASSESSMENT: [place] I Cannabis dependence. [place] II Deferred. [place] III Seizure. [place] IV Low. [place] V 25. PLAN: 1. The patient will not benefit from any medication at this point of time. 2. The patient would like to be discharged. Yokasta Duke M.D. DR: JOHN PAUL JOB#: [id number] CC: RONALD
--- NOTE | 2018-12-19 03:00 | History and Physical Report ---
DATE OF ADMISSION: 12/17/2018 HISTORY OF PRESENT ILLNESS: The patient is admitted for intractable seizures, noncompliant with medication. The patient had multiple seizures in the last 24 hours. PAST MEDICAL HISTORY: Seizures. PAST SURGICAL HISTORY: None. SOCIAL HISTORY: History of smoking. History of marijuana use. History of alcohol abuse. MEDICATIONS: Not taking any medication for seizure. ALLERGIES: Penicillin . REVIEW OF SYSTEMS: HEENT: Denies headaches. RESPIRATORY: Denies shortness of breath. Denies cough. CARDIOVASCULAR: Denies chest pain. GASTROINTESTINAL: Denies nausea, vomiting, or diarrhea. EXTREMITIES: Denies pain in the lower extremities. CENTRAL NERVOUS PATTERN: Denies change in speech pattern. Did have seizure episode for the past 24 hours. PHYSICAL EXAMINATION: VITAL SIGNS: Temperature 97.7 degrees, . HEENT: PERRLA. NECK: Supple. CHEST: Clear to auscultation. CARDIOVASCULAR: Regular rate and rhythm. No murmurs or extra sounds. GASTROINTESTINAL: Soft, nontender, and nondistended. No organomegaly. EXTREMITIES: No edema. Moves all four extremities. NEUROLOGIC: Sensory is intact to light touch. The patient is able to move all four extremities. LABORATORY DATA: . ASSESSMENT AND PLAN: Recurrent seizures and noncompliant with medications. I have asked Dr. Yao, Dr. Duke, and Dr. Leslie to see the patient for the seizure control as well as rule out dehydration. Bernice Paiz M.D. DR: TOM JOB#: [id number] CC:
--- NOTE | 2018-12-19 12:51 | Discharge Summary ---
Discharge Summary Discharge Summary _ DATE OF ADMISSION: 12/17/2018 DATE OF DISCHARGE: 12/18/2018 Patient left AGAINST MEDICAL ADVICE REASON FOR ADMISSION: 18 years old female with past medical history of seizure disorder, presented to emergency department after seizure episode. Patient was in the car with the family in the hospital parking lot , when she had another seizure , witnessed by mother and cousin. Patient subsequently was brought to emergency department . Patient appeared postictal. Patient was just discharged from the hospital, where she was evaluated for seizure. Patient apparently noncompliant with her medication. Patient also reported history of marijuana use. No reported fall or head injury. Upon evaluation vital signs were stable. In emergency department patient received Ativan , started on IV fluids and received IV Keppra. Patient initially was tachycardic , but tachycardia resolved after IV fluids. EKG reveals sinus tachycardia , no acute ischemic changes. Patient subsequently admitted for seizure disorder and noncompliance. CONSULTANTS: neurologist Dr. Lopez psychiatrist [facility] COURSE: Patient admitted to telemetry floor. Neurologist seen and evaluated patient. Per neurologist , patient probably had focal seizure with secondary generalization. Etiology was unclear. No history of febrile seizures, while she was a child. No history of head trauma or injury , stroke or other problem. The reason that she was having breakthrough seizure due to noncompliance with her medications. Neurologist recommended to see neurologist as an outpatient . Psychiatrist seen and evaluated patient. Per psychiatrist patient had cannabis dependence. Psychiatrist stated that the patient will not benefit from any psychiatric medication at this point of time. Patient decided sign out AGAINST MEDICAL ADVICE. The risks and consequences of signing AGAINST MEDICAL ADVICE were discussed with patient in detail. Patient verbalized understanding, nevertheless signed AMA form and left. FINAL DIAGNOSES: Seizure disorder with recurrent seizure, due to noncompliance Probable focal seizure with secondary generalization Noncompliance with medication Cannabis dependence I have been assigned to dictate discharge summary for this account. I was not involved in the patient's management. Sheila Moe NP Dec 19, 2018 12:51
== END 2018-12-18 19:45 | disposition left against medical advice (07) | DRG 53 ==
LOC: EMR 19:15 → 2E 19:50 → EDBEDREQ 21:28
DX: G40.909 Epilepsy, unspecified, not intractable, without status epilepticus (principal); Z91.14 Patient's other noncompliance with medication regimen; Z88.1 Allergy status to other antibiotic agents; Z88.0 Allergy status to penicillin; F12.20 Cannabis dependence, uncomplicated; F10.11 Alcohol abuse, in remission
CPT/HCPCS: 80299; 82962; 93005; 96361; 96374; 96375; 99285

== ENCOUNTER 2019-01-11 18:22 | Emergency (ER) | payer MEDICAID ==
[~2019-01-11] VITALS: Ht 162.6 cm; Wt 63.5 kg
--- NOTE | 2019-01-11 18:34 | NUR ---
ED Nurse Note: pt presents to ED via EMS arrival. pt had a sz about 1 hr that was witnessed by her mother. the sz lasted about 1 minute. pt states that she usually takes Keppra but has been off of it for a couple days because she and her mother felt that it was making her "act differently."
--- NOTE | 2019-01-11 18:44 | Emergency Room Report ---
History of Present Illness General Chief Complaint: Seizure Source: Patient, Family Member Present Illness HPI Patient presents post seizure. She stopped taking her Keppra 2 days ago. Her mom felt that it might be the reason for that she was feeling haynes. Mom witnessed a seizure today. She just about gave her a dose of Keppra before the seizure started. Patient is complaining about an occipital headache this 12/17. Also she has nausea. After she has seizures she does have nausea. She does not believe she is at this time. She was seen 2 weeks ago for seizures and headache. She has some mild cough that is nonproductive. She denies any back pain or extremity pain. She did not bite her tongue. She denies alcohol or drugs. In the past she is used cannabis No fevers, chills, sore throat, chest pain, palpitations, vomiting, diarrhea, dysuria, abdominal pain, shortness of breath, joint pain, rashes, depression, anxiety. She was admitted December 17. Discharge diagnoses: Seizure disorder with recurrent seizure, due to noncompliance Probable focal seizure with secondary generalization Noncompliance with medication Cannabis dependence She signed out AGAINST MEDICAL ADVICE. Allergies: Coded Allergies: AMOXICILLIN (Verified Allergy, Unknown, 05/23/18) PENICILLINS (Verified Allergy, Unknown, 05/23/18) Patient History Past Medical History: see triage record Social History: Denies: smoking, alcohol use, drug use Social History Narrative Lives with mother Last Menstrual Period: N/A Now: No - Unknown Reviewed Nursing Documentation: PMH: Agreed; PSxH: Agreed Nursing Documentation-PMH Hx Cardiac Problems: No Hx Cancer: No Hx Gastrointestinal Problems: No Hx Neurological Problems: Yes Hx Seizures: Yes Review of Systems All Other Systems: negative except mentioned in HPI Physical Exam Vital Signs Date Time Temp Pulse Resp B/P (MAP) Pulse Ox O2 Delivery O2 Flow Rate FiO2 01/11/19 18:13 98.2 94 16 113/73 (86) 98 Room Air Sp02 EP Interpretation: reviewed, normal General Appearance: well appearing, no apparent distress, GCS 15 Head: normocephalic Eyes: bilateral eye normal inspection, bilateral eye PERRL, bilateral eye EOMI ENT: moist mucus membranes - No lingual macerations Neck: supple, no bony tend, tender - Posterior neck muscles Respiratory: chest non-tender, lungs clear, normal breath sounds Cardiovascular #1: regular rate, rhythm Cardiovascular #2: 2+ radial (R) Gastrointestinal: normal inspection, normal bowel sounds, non tender, no mass, non-distended Musculoskeletal: back normal, gait/station normal, normal range of motion Neurologic: alert, oriented x3, scan coordinator III-XII nml as tested, motor strength/tone normal, DTRs symmetric, sensory intact, cerebellar normal, speech normal Psychiatric: mood/affect normal Skin: no rash, warm/dry Medical Decision Making Diagnostic Impression: Primary Impression: Seizure Additional Impressions: Headache Qualified Codes: G44.89 - Other headache syndrome Noncompliance ER Course Patient presents post seizure. She is alleging that she is noncompliant with her seizures. Differential includes seizure noncompliance, electrolyte imbalance, breakthrough seizure amongst others. Patient will be evaluated EKG chest x-ray and labs. Patient will be given a dose of Ativan, Keppra and Reglan , Benadryl and Toradol. Patient is placed on a threat monitoring analyst. EKG with heart rate 82 normal sinus rhythm past possible left atrial enlargement and nonspecific ST T wave changes. QT corrected 469. Labs unremarkable. Chest x-ray clear. Patient went to the bathroom but states that she forgot to get a urine sample. Patient improved and headache improved. Discussed findings with patient and mother. She has an appointment next Sunday with her neurologist. Patient stable for outpatient observation and treatment. Laboratory Tests Test 01/11/19 18:44 White Blood Count 7.1 K/UL (4.8-10.8) Red Blood Count 4.51 M/UL (4.20-5.40) Hemoglobin 12.2 G/DL (12.0-16.0) Hematocrit 38.3 % (37.0-47.0) Mean Corpuscular Volume 85 FL (80-99) Mean Corpuscular Hemoglobin 27.0 PG (27.0-31.0) Mean Corpuscular Hemoglobin Concent 31.7 G/DL (32.0-36.0) L Red Cell Distribution Width 14.2 % (11.6-14.8) Platelet Count 444 K/UL (150-450) Mean Platelet Volume 6.0 FL (6.5-10.1) L Neutrophils (%) (Auto) 60.3 % (45.0-75.0) Lymphocytes (%) (Auto) 30.4 % (20.0-45.0) Monocytes (%) (Auto) 4.8 % (1.0-10.0) Eosinophils (%) (Auto) 0.9 % (0.0-3.0) Basophils (%) (Auto) 3.6 % (0.0-2.0) H Sodium Level 139 MMOL/L (136-145) Potassium Level 3.7 MMOL/L (3.5-5.1) Chloride Level 104 MMOL/L (98-107) Carbon Dioxide Level 23 MMOL/L (21-32) Anion Gap 12 mmol/L (5-15) Blood Urea Nitrogen 9 mg/dL (7-18) Creatinine 0.9 MG/DL (0.55-1.30) Estimate Glomerular Filtration Rate > 60 mL/min (>60) Glucose Level 91 MG/DL (74-106) Calcium Level 9.5 MG/DL (8.5-10.1) Total Bilirubin 0.4 MG/DL (0.2-1.0) Aspartate Amino Transferase (AST) 15 U/L (15-37) Alanine Aminotransferase (ALT) 19 U/L (12-78) Alkaline Phosphatase 55 U/L (46-116) Total Creatine Kinase 133 U/L (26-308) Total Protein 8.0 G/DL (6.4-8.2) Albumin 4.2 G/DL (3.4-5.0) Globulin 3.8 g/dL Albumin/Globulin Ratio 1.1 (1.0-2.7) EKG Diagnostic Results Rate: normal Rhythm: NSR ST Segments: no acute changes - Nonspecific ST-T wave changes QT corrected 469 Rhythm Strip Diag. Results EP Interpretation: yes Rhythm: NSR, no PVC's, no ectopy Chest X-Ray Diagnostic Results Chest X-Ray Diagnostic Results : Chest X-Ray Ordered: Yes # of Views/Limited/Complete: 1 View Indication: Other EP Interpretation: Yes Interpretation: no consolidation, no effusion, no pneumothorax Impression: No acute disease Electronically Signed by: Electronically signed by Bib Del Real MD Last Vital Signs Date Time Temp Pulse Resp B/P (MAP) Pulse Ox O2 Delivery O2 Flow Rate FiO2 01/11/19 20:48 98.4 68 16 108/76 100 Room Air Status: improved Disposition: HOME, SELF-CARE Condition: Improved Scripts Ibuprofen* (MOTRIN*) 600 Mg Tablet 600 MG ORAL Q6H PRN for For Pain, #20 TAB 0 Refills Prov: Bib Del Real MD 01/11/19 Ondansetron Odt* (ZOFRAN ODT*) 4 Mg Tab.rapdis 4 MG BC EVERY 8 HOURS, #10 TAB 0 Refills Prov: Bib Del Real MD 01/11/19 Bib Del Real MD Jan 11, 2019 18:44
[2019-01-11] MEDS ORDERED: levETIRAcetam 500 MG in D5W 110 ML IV ONE (18:45)
[2019-01-11] MEDS ORDERED: Ketorolac 30mg Inj IV ONE (18:45)
[2019-01-11] MEDS ORDERED: DiphenhydrAMINE 50mg/ml Inj IVP ONE (18:45)
[2019-01-11] MEDS ORDERED: Metoclopramide 10mg/2ml Inj IVP ONE (18:45)
[2019-01-11] MEDS ORDERED: LORazepam Inj 2mg/ml 1ml IV ONE (18:45)
--- NOTE | 2019-01-11 18:50 | NUR ---
ED Nurse Note: pt's mother witnessed her seizure, she is at bedside
[2019-01-11 19:00] VITALS: BP 100/74
[2019-01-11 19:04] LABS: BASOPHILS % (AUTO) 3.6 % (0.0-2.0); EOSINOPHILS % (AUTO) 0.9 % (0.0-3.0); HEMATOCRIT 38.3 % (37.0-47.0); HEMOGLOBIN 12.2 G/DL (12.0-16.0); LYMPHOCYTES % (AUTO) 30.4 % (20.0-45.0); MEAN CORPUSCULAR VOLUME 85 FL (80-99); MONOCYTES % (AUTO) 4.8 % (1.0-10.0); NEUTROPHILS % (AUTO) 60.3 % (45.0-75.0); PLATELET COUNT 444 K/UL (150-450); RED BLOOD COUNT 4.51 M/UL (4.20-5.40); RED CELL DISTRIBUTION WIDTH 14.2 % (11.6-14.8); WHITE BLOOD COUNT 7.1 K/UL (4.8-10.8)
--- NOTE | 2019-01-11 19:05 | NUR ---
HAND-OFF: Report given to Nathalie POLANCO. pending urine collection
--- NOTE | 2019-01-11 19:10 | NUR ---
ED Nurse Note: received report from SHERRI Roberts and assumed care, pt resting at this time, vss, resp even and unlabored on RA, will cont monitor. iv fluids running at this time. pt on keppra.
[2019-01-11 19:18] LABS: ANION GAP 12 mmol/L (5-15); BLOOD UREA NITROGEN 9 mg/dL (7-18); CALCIUM 9.5 MG/DL (8.5-10.1); CARBON DIOXIDE 23 MMOL/L (21-32); CHLORIDE 104 MMOL/L (98-107); CREATININE 0.9 MG/DL (0.55-1.30); POTASSIUM 3.7 MMOL/L (3.5-5.1); SODIUM 139 MMOL/L (136-145)
[2019-01-11 19:22] LABS: ALANINE AMINOTRANSFERASE 19 U/L (12-78); ALBUMIN 4.2 G/DL (3.4-5.0); ALBUMIN/GLOBULIN RATIO 1.1 (1.0-2.7); ALKALINE PHOSPHATASE 55 U/L (46-116); ASPARTATE AMINO TRANSFERASE 15 U/L (15-37); BILIRUBIN,TOTAL 0.4 MG/DL (0.2-1.0); CREATINE KINASE 133 U/L (26-308)
[2019-01-11 20:00] VITALS: BP 109/73
--- NOTE | 2019-01-11 20:15 | NUR ---
ED Nurse Note: pt ambulated to restroom, steady gait noted, unable to obtain urine specimen at this time, pt states she liu try again.
--- NOTE | 2019-01-11 20:17 | Diagnostic Imaging Report ---
EXAM: XR Chest, 1 View CLINICAL HISTORY: SZ TECHNIQUE: Frontal view of the chest. COMPARISON: No relevant prior studies available. FINDINGS: Lungs: Unremarkable. No consolidation. Pleural space: Unremarkable. No pneumothorax. Heart: Unremarkable. No cardiomegaly. Mediastinum: Unremarkable. Bones joints: Unremarkable. IMPRESSION: No acute cardiopulmonary abnormality.
[2019-01-11] MEDS ORDERED: IBUPROFEN600 MG ORAL (20:32)
[2019-01-11] MEDS ORDERED: ONDANSETRON ODT4 MG BC (20:32)
--- NOTE | 2019-01-11 20:45 | NUR ---
ED Nurse Note: medication waste done w/ 2 RNlinda.
--- NOTE | 2019-01-11 20:45 | NUR ---
ED Nurse Note: pt cleared to be d/c per ermd, pt discharge and aftercare instruction provided w/ prescription, pt education done via discussion and handout, pt advised to follow up with pcp or return to ed if changes in condition, vss, ambulatory w/ steady gait, pt accompanied by mother and left w/ all belongings. iv d/c. pt advised to follow up with neurologist as well.
[2019-01-11 20:48] VITALS: BP 108/76
== END 2019-01-11 20:48 | disposition home or self-care (01) ==
LOC: EDSEX 18:22 → EDBD 18:22 → EMR 18:51
DX: G40.909 Epilepsy, unspecified, not intractable, without status epilepticus (principal); G44.89 Other headache syndrome; Z91.14 Patient's other noncompliance with medication regimen; Z88.0 Allergy status to penicillin; Z88.1 Allergy status to other antibiotic agents
CPT/HCPCS: 36415; 71045; 80053; 80299; 82550; 85025; 93005; 96361; 96374; 96375; J1200; J1885; J1953; J2765; Z7502; 99284

== ENCOUNTER 2019-06-18 19:49 | Emergency (ER) | payer MEDICAID ==
[~2019-06-18] VITALS: Ht 154.9 cm; Wt 51.3 kg
[~2019-06-18 19:49] MED LIST changes: +IBUPROFEN600 MG ORAL; +NKM; +ONDANSETRON ODT4 MG BC
--- NOTE | 2019-06-18 20:00 | NUR ---
ED Nurse Note: PT WALKED IN TO ED C/O NV X7 DAYS. DENIES DIARRHEA OR FEVER. VSS, NAD, ERMD AT BEDSIDE
[2019-06-18 20:35] VITALS: BP 124/86
[2019-06-18 20:48] LABS: ANION GAP 12 mmol/L (5-15); BLOOD UREA NITROGEN 6 mg/dL (7-18); CALCIUM 9.9 MG/DL (8.5-10.1); CARBON DIOXIDE 29 MMOL/L (21-32); CHLORIDE 97 MMOL/L (98-107); CREATININE 0.8 MG/DL (0.55-1.30); POTASSIUM 3.7 MMOL/L (3.5-5.1); SODIUM 138 MMOL/L (136-145)
[2019-06-18 20:51] LABS: BASOPHILS % (AUTO) 2.4 % (0.0-2.0); EOSINOPHILS % (AUTO) 0.5 % (0.0-3.0); HEMOGLOBIN 13.2 G/DL (12.0-16.0); LYMPHOCYTES % (AUTO) 27.6 % (20.0-45.0); MEAN CORPUSCULAR VOLUME 83 FL (80-99); MONOCYTES % (AUTO) 4.5 % (1.0-10.0); PLATELET COUNT 429 K/UL (150-450); RED BLOOD COUNT 5.09 M/UL (4.20-5.40); RED CELL DISTRIBUTION WIDTH 17.1 % (11.6-14.8); WHITE BLOOD COUNT 10.7 K/UL (4.8-10.8)
[2019-06-18 20:53] LABS: ALANINE AMINOTRANSFERASE 20 U/L (12-78); ALBUMIN 4.3 G/DL (3.4-5.0); ALKALINE PHOSPHATASE 64 U/L (46-116); ASPARTATE AMINO TRANSFERASE 13 U/L (15-37); BILIRUBIN,TOTAL 0.7 MG/DL (0.2-1.0)
[2019-06-18 20:54] LABS: APPEARANCE,URINE SLIGHTLY CLOUDY; BILIRUBIN, URINE NEGATIVE (NEGATIVE); GLUCOSE, URINE (UA) NEGATIVE (NEGATIVE); KETONES,URINE 4+ (NEGATIVE); LEUKOCYTE ESTERASE ,URINE 1+ (NEGATIVE); NITRITE,URINE NEGATIVE (NEGATIVE); PH,URINE 7 (4.5-8.0); PROTEIN,URINE 2+ (NEGATIVE); UROBILINOGEN,URINE 1 MG/DL (0.0-1.0)
--- NOTE | 2019-06-18 20:54 | Emergency Room Report ---
History of Present Illness General Chief Complaint: Nausea, Vomiting, and Diarrhea Source: Patient Present Illness HPI Patient is a 19-year-old female denies any significant past medical history who presents to the ER complaining of abdominal discomfort, nausea and vomiting for the past week. Patient states that this started after she drank a significant amount of [place] 1 week ago. She states that she woke up the next morning having multiple episodes of nonbloody nonbilious emesis that have been persistent. Patient denies any fever or chills. She denies any diarrhea. She denies any recent travel or sick contacts. She states that he she is just finishing her period. Allergies: Coded Allergies: AMOXICILLIN (Verified Allergy, Unknown, 05/23/18) PENICILLINS (Verified Allergy, Unknown, 05/23/18) Patient History Past Medical History: seizures Past Surgical History: none Social History: Reports: alcohol use Last Menstrual Period: 06/13/19 Now: No : 0 Nursing Documentation-[facility] Past Medical History: No History, Except For Hx Cardiac Problems: No Hx Hypertension: No Hx Pacemaker: No Hx Asthma: No Hx COPD: No Hx Diabetes: No Hx Cancer: No Hx Gastrointestinal Problems: No Hx Dialysis: No History Of Psychiatric Problem: No Hx Neurological Problems: No Hx Cerebrovascular Accident: No Hx Seizures: Yes Review of Systems All Other Systems: negative except mentioned in HPI Physical Exam Vital Signs Date Time Temp Pulse Resp B/P (MAP) Pulse Ox O2 Delivery O2 Flow Rate FiO2 06/18/19 20:02 98.2 88 18 124/86 (99) 97 Room Air Sp02 EP Interpretation: reviewed, normal General Appearance: no apparent distress, alert, GCS 15, non-toxic Head: normocephalic, atraumatic Eyes: bilateral eye normal inspection, bilateral eye PERRL ENT: hearing grossly normal, normal pharynx, no angioedema, normal voice Neck: full range of motion, supple/symm/no masses Respiratory: chest non-tender, lungs clear, normal breath sounds, speaking full sentences Cardiovascular #1: regular rate, rhythm, no edema Gastrointestinal: normal bowel sounds, soft, non-distended, no guarding, no rebound, other - Bilateral lower abdominal pain Rectal: deferred Genitourinary: normal inspection, no CVA tenderness Musculoskeletal: back normal, normal range of motion, calf tenderness, gait/ station normal, non-tender Neurologic: alert, motor strength/tone normal, oriented x3, sensory intact, responsive, speech normal Psychiatric: judgement/insight normal, memory normal, mood/affect normal, no suicidal/homicidal ideation Skin: other - dry scaly rash to abdominal region, ? tinea corpis? Lymphatic: no adenopathy Medical Decision Making Diagnostic Impression: Primary Impression: Cystitis Additional Impressions: Non compliance w medication regimen Tinea corporis ER Course Patient given IV fluids, Zofran and Pepcid. I went to go reevaluate the patient she admitted to daily marijuana use. I told her that she could have cyclical vomiting from her THC abuse she said that she had been told that before but continues to use daily as well as drink alcohol. Patient is also requesting to be tested for STDs because she had an STD back in December and she felt "like this". GC and chlamydia have been ordered. I told her that the results take 2 to [address] demonstrates no significant acute findings. Preliminary read stating the patient could have proctitis versus mild colitis versus under distention. Patient has no diarrhea, is afebrile and has no elevated white blood cell count. Doubt colitis at this time. I have advised her to follow-up with a lift driver for further treatment and evaluation. I have told her to stop smoking THC. Patient had told me initially that she does not take her Keppra for her seizure disorder due to the fact that she does not like the side effects. I told her that that is better than having seizures. She says that she is here to wait till she can see a neurologist. After discussing risks and benefits of further diagnostics, treatment plans, as well as indications for and risks of admission, the patient is agreeable to being discharged home. I have explained that their evaluation and treatment in the emergency department today is an important step towards them achieving better health but that their evaluation today is not intended to replace further evaluation and treatment by a physician in their local clinic. I have explained that while the current findings suggest no immediate life threatening emergency they will require further evaluation and treatment by a physician of their choice in their area. They understand that it will be necessary for them to review the final reports of their ED visit with their clinic physician. We have reviewed indications for return to the Emergency Department. I have explained that additional time may need to pass and/or additional testing as an outpatient may be necessary before a definitive diagnosis can be made. They tell me they are willing to follow up as instructed within the timeframe I recommend. They appear to understand what we discussed. Additionally they understand that if they are unable to be seen by an outpatient physician they are welcome, and in fact should, return to the Emergency Department for a repeat evaluation. The patient is stable at time of discharge. Rhythm Strip Diag. Results Rhythm Strip Time: 20:54 EP Interpretation: yes - MD Wilian Rate: 63 Rhythm: NSR, no PVC's, no ectopy Last Vital Signs Date Time Temp Pulse Resp B/P (MAP) Pulse Ox O2 Delivery O2 Flow Rate FiO2 06/18/19 20:35 98.2 18 124/86 97 Room Air 06/18/19 20:02 88 Disposition: HOME, SELF-CARE Condition: Improved Scripts Ondansetron (Zofran) 4 Mg Tablet 4 MG ORAL Q8H PRN for Nausea & Vomiting, #10 TAB 0 Refills Prov: Dariana Cedeno M.D. 06/18/19 Ketoconazole (Ketoconazole) 25 Gm Crystals 25 GM MC BID for 30 Days, GM Prov: Dariana Cedeno M.D. 06/18/19 Nitrofurantoin Monohyd/M-Cryst* (MACROBID 100 MG*) 100 Mg Capsule 100 MG ORAL EVERY 12 HOURS for 7 Days, CAP Prov: Dariana Cedeno M.D. 06/18/19 Additional Instructions: The patient was provided with discharge instructions, notified to follow-up with a primary care doctor and or specialist in the next 24-48 hours, and to return to the ED if they have worsening of their symptoms. Please note that this report is being documented using [employer] technology. This can lead to erroneous entry secondary to incorrect interpretation by the dictating instrument. Dariana Cedeno M.D. Jun 18, 2019 20:54
[2019-06-18 20:55] LABS: COLOR,URINE YELLOW
--- NOTE | 2019-06-18 21:00 | NUR ---
ED Nurse Note: PT REFUSED TO TAKE ATBX, STATING "IT MAKES ME FEEL NAUSEOUS AND VOMIT". ERMD NOTIFIED, AND AT BEDSIDE
[2019-06-18] MEDS ORDERED: Haloperidol 5mg/ml Inj IM ONE (21:30)
--- NOTE | 2019-06-18 21:30 | NUR ---
ED Nurse Note: PT WENT FOR CT
--- NOTE | 2019-06-18 21:40 | NUR ---
ED Nurse Note: PT BACK FROM CT
[2019-06-18] MEDS ORDERED: ZOFRAN4 MG ORAL (21:49)
[2019-06-18] MEDS ORDERED: NITROFURANTOIN100 M2 ORAL (21:49)
[2019-06-18] MEDS ORDERED: KETOCONAZOLE MC (21:49)
--- NOTE | 2019-06-18 21:55 | Diagnostic Imaging Report ---
Indication: Abdominal discomfort, nausea, vomiting Technique: Spiral acquisitions obtained through the abdomen and pelvis. No oral contrast utilized, per emergency room physician request No IV contrast utilized, per referring physician request.. Multiplanar reconstructions were generated. Total dose length product 139 mGycm. CTDIvol(s) 3 mGy. Dose reduction achieved using automated exposure control Comparison: None Findings: The appendix is normal. There is no evidence of colonic diverticulosis or diverticulitis. No small bowel distention. No free or loculated intraperitoneal gas or fluid is evident. The distal esophagus, stomach, duodenum are unremarkable. Lack of IV contrast limits assessment of solid organs. The liver, gallbladder, bile ducts, pancreas, spleen, adrenals, kidneys are unremarkable. No renal or ureteral calculi, hydronephrosis, or hydroureter. Included lung bases are clear. The bones are unremarkable Impression: Negative This agrees with the preliminary interpretation provided overnight by [facility] teleradiology service. The CT scanner at [facility] is accredited by the [employer] and the scans are performed using protocols designed to limit radiation exposure to as low as reasonably achievable to attain images of sufficient resolution adequate for diagnostic evaluation.
[2019-06-18 22:00] VITALS: BP 122/84
--- NOTE | 2019-06-18 22:00 | NUR ---
ER DISCHARGE NOTE: Patient is cleared to be discharged per ERMD, pt is aox4, on room air, with stable vital signs. pt was given dc and prescription instructions, pt was able to verbalize understanding, pt id band and iv site removed without complications. pt is able to ambulate with steady gait. pt took all belongings.
== END 2019-06-18 22:00 | disposition home or self-care (01) ==
LOC: EMR 20:19
DX: N30.00 Acute cystitis without hematuria (principal); Z91.14 Patient's other noncompliance with medication regimen; B35.4 Tinea corporis; Z88.0 Allergy status to penicillin; R11.2 Nausea with vomiting, unspecified
CPT/HCPCS: 36415; 74176; 80053; 80307; 81003; 81025; 83735; 85025; 87491; 87590; 96361; 96372; 96374; 96375; J1630; J2405; J7030; S0028; Z7502; 99284

== ENCOUNTER 2019-06-19 21:22 | Emergency (ER) | payer MEDICAID ==
[~2019-06-19] VITALS: Ht 170.2 cm; Wt 59.0 kg
[~2019-06-19 21:22] MED LIST changes: +KETOCONAZOLE MC; +ZOFRAN4 MG ORAL
[2019-06-19 21:25] VITALS: BP 104/73
--- NOTE | 2019-06-19 21:30 | NUR ---
ED Nurse Note: Pt brought in from home by FELICIA RA 34 for decreased responsiveness. Per EMS, pt obtained marijuana from a new supplier [employer] and smoked marijuana around 8pm causing her to be lethargic. Pt also has hx of seizures, not compliant with medication keppra for the past four weeks. FELICIA gave 50mg benadryl IM en route. Pt is arousable and aaox3, but lethargic and not able to ambulate with steady gait at this time.
--- NOTE | 2019-06-19 21:35 | NUR ---
ED Nurse Note: BLOOD DRAWN AND SENT TO LAB WITH URINE
--- NOTE | 2019-06-19 21:52 | Emergency Room Report ---
History of Present Illness General Chief Complaint: General Complaint Source: Patient Present Illness HPI Disclaimer: Please note that this report is being documented using DRAGON technology. This can lead to erroneous entry secondary to incorrect interpretation by the dictating instrument. HPI: 19-year-old female presents for evaluation of spasms. States approximate 1 hour prior to arrival she was smoking marijuana and suddenly had involuntary contractions of the head, neck and her tongue. She states her trunk was protruding her neck was rotated to the left side and flexed backwards. Her arms were held in flexion at her chest. She was conscious and awake during this whole time but simply had tenseness in her muscles that did not relax. She was given Benadryl by EMS concern for acute dystonic reaction. She denies taking any psychotic medications or prior instance of this happening. She smokes marijuana daily. Denies any other drugs. She has been experiencing a GI illness complaining of nausea and anorexia for the past week. She later first meal yesterday. She has been feeling weak and dehydrated. Denies any fever, diarrhea. Her spasm symptoms are now resolving. She states she has almost full strength and good range of motion now. Denies any headache, visual changes, numbness, tingling. She has not yet tried to ambulate. Patient has a history of seizure disorder and was previously on Keppra. She states she was taken off by another neurologist last month. She is not currently taking any anti-epileptic medications PMH: Seizure disorder PSH: Denies Allergies: Penicillin Social Hx: Daily THC use COVID-19 risk:Travel to affect: No Has patient experienced sam: No Allergies: Coded Allergies: AMOXICILLIN (Verified Allergy, Unknown, 05/23/18) PENICILLINS (Verified Allergy, Unknown, 05/23/18) Uncoded Allergies: PCN (Allergy, Unknown, 06/19/19) Patient History Last Menstrual Period: na Now: No Nursing Documentation-PMH Past Medical History: No History, Except For Hx Cardiac Problems: No Hx Hypertension: No Hx Pacemaker: No Hx Asthma: No Hx COPD: No Hx Diabetes: No Hx Cancer: No Hx Gastrointestinal Problems: No Hx Dialysis: No Hx Neurological Problems: No Hx Cerebrovascular Accident: No Hx Seizures: Yes Review of Systems All Other Systems: negative except mentioned in HPI Physical Exam Vital Signs Date Time Temp Pulse Resp B/P (MAP) Pulse Ox O2 Delivery O2 Flow Rate FiO2 3/12/20 21:16 98.1 80 16 104/73 (83) 100 Room Air General: Awake and alert, no acute distress HEENT: NC/AT. EOMI. PERRLA. Visual sands are full. No nystagmus. Facial expressions are symmetrical. No facial droop. Cardiovascular: RRR. S1 and S2 normal. No murmur appreciated Resp: Normal work of breathing. No cough, wheezing or crackles appreciated Abdomen: Abdomen is soft, nondistended. Nontender Skin: Intact. No abrasions, laceration or rash over the exposed skin MSK: Normal tone and bulk. Moving all extremities. No obvious deformity. There is no drift in the upper or lower extremities bilaterally. Neuro: Awake and alert. Mentating appropriately. Facial expression symmetrical. No dysarthria, no ataxia on [id number] or [id number] testing. Sensation to light touch is intact over the upper and lower extremities. The patient has intact speech with good repetition, comprehension. Fund of knowledge is full. No aphasia, no neglect. NIH: 0 Medical Decision Making Diagnostic Impression: Primary Impression: Non compliance w medication regimen Additional Impression: Spasm ER Course 19-year-old female presents for evaluation of rigidity and spasticity in the upper extremities neck and tongue now resolved after receiving Benadryl. Differential includes was not limited to drug side effect, dehydration, electrolyte abnormality, dystonic reaction, tocolysis, focal seizure, tardive dyskinesia. Will provide IV fluids and start a broad metabolic infectious toxicologic work-up. Laboratory Tests Test 06/19/19 22:00 White Blood Count 10.6 K/UL (4.8-10.8) Red Blood Count 4.26 M/UL (4.20-5.40) Hemoglobin 11.2 G/DL (12.0-16.0) L Hematocrit 35.1 % (37.0-47.0) L Mean Corpuscular Volume 82 FL (80-99) Mean Corpuscular Hemoglobin 26.3 PG (27.0-31.0) L Mean Corpuscular Hemoglobin Concent 32.0 G/DL (32.0-36.0) Red Cell Distribution Width 17.5 % (11.6-14.8) H Platelet Count 355 K/UL (150-450) Mean Platelet Volume 6.9 FL (6.5-10.1) Neutrophils (%) (Auto) 52.3 % (45.0-75.0) Lymphocytes (%) (Auto) 38.5 % (20.0-45.0) Monocytes (%) (Auto) 5.4 % (1.0-10.0) Eosinophils (%) (Auto) 2.0 % (0.0-3.0) Basophils (%) (Auto) 1.9 % (0.0-2.0) Sodium Level 142 MMOL/L (136-145) Potassium Level 3.7 MMOL/L (3.5-5.1) Chloride Level 104 MMOL/L (98-107) Carbon Dioxide Level 33 MMOL/L (21-32) H Anion Gap 5 mmol/L (5-15) Blood Urea Nitrogen 8 mg/dL (7-18) Creatinine 0.7 MG/DL (0.55-1.30) Estimate Glomerular Filtration Rate > 60 mL/min (>60) Glucose Level 120 MG/DL (74-106) H Calcium Level 8.9 MG/DL (8.5-10.1) Total Bilirubin 0.4 MG/DL (0.2-1.0) Aspartate Amino Transferase (AST) 21 U/L (15-37) Alanine Aminotransferase (ALT) 20 U/L (12-78) Alkaline Phosphatase 58 U/L (46-116) Total Protein 7.0 G/DL (6.4-8.2) Albumin 3.5 G/DL (3.4-5.0) Globulin 3.5 g/dL Albumin/Globulin Ratio 1.0 (1.0-2.7) Salicylates Level 0.3 ug/mL (2.8-20) L Urine Opiates Screen Negative (NEGATIVE) Acetaminophen Level < 2 MCG/ML (10-30) L Urine Barbiturates Screen Negative (NEGATIVE) Phencyclidine (PCP) Screen Negative (NEGATIVE) Urine Amphetamines Screen Negative (NEGATIVE) Urine Benzodiazepines Screen Negative (NEGATIVE) Urine Cocaine Screen Negative (NEGATIVE) Urine Marijuana (THC) Screen Positive (NEGATIVE) H Serum Alcohol < 3 mg/dL Reevaluation Time: 23:25 Last Vital Signs Date Time Temp Pulse Resp B/P (MAP) Pulse Ox O2 Delivery O2 Flow Rate FiO2 06/19/19 21:16 98.1 80 16 104/73 (83) 100 Room Air Status: improved Reevaluation Impression Patient symptoms are now entirely resolved. She feels well and is asking to go home. Labs returned within normal limits. She refused Robaxin stating that her symptoms are resolved. May be a complication from the Zofran she was discharged with yesterday. Advised her to discontinue Zofran. She continue the antibiotics for cystitis. Again I offered to load the patient with Keppra and provide a prescription for Keppra however she stated that she does not want to take it until she speaks with her neurologist. Advised her not to drive or operate heavy machinery until cleared to do so by her neurologist. She will follow-up with her PMD and neurologist on an outpatient basis. Discussed reasons to return to the emergency department. She understands and agrees with this treatment plan. Disposition: HOME, SELF-CARE Condition: Improved Mc Espinoza MD Jun 19, 2019 21:52
[2019-06-19] MEDS: Methocarbamol 750mg tab ORAL ONE ×2 (22:02→22:06)
[2019-06-19 22:21] LABS: BASOPHILS % (AUTO) 1.9 % (0.0-2.0); HEMATOCRIT 35.1 % (37.0-47.0); HEMOGLOBIN 11.2 G/DL (12.0-16.0); LYMPHOCYTES % (AUTO) 38.5 % (20.0-45.0); MEAN CORPUSCULAR VOLUME 82 FL (80-99); MONOCYTES % (AUTO) 5.4 % (1.0-10.0); NEUTROPHILS % (AUTO) 52.3 % (45.0-75.0); PLATELET COUNT 355 K/UL (150-450); RED BLOOD COUNT 4.26 M/UL (4.20-5.40); RED CELL DISTRIBUTION WIDTH 17.5 % (11.6-14.8); WHITE BLOOD COUNT 10.6 K/UL (4.8-10.8)
[2019-06-19 22:36] LABS: ANION GAP 5 mmol/L (5-15); BLOOD UREA NITROGEN 8 mg/dL (7-18); CALCIUM 8.9 MG/DL (8.5-10.1); CARBON DIOXIDE 33 MMOL/L (21-32); CHLORIDE 104 MMOL/L (98-107); CREATININE 0.7 MG/DL (0.55-1.30); POTASSIUM 3.7 MMOL/L (3.5-5.1); SODIUM 142 MMOL/L (136-145)
[2019-06-19 22:37] LABS: ALANINE AMINOTRANSFERASE 20 U/L (12-78); ALBUMIN 3.5 G/DL (3.4-5.0); ALKALINE PHOSPHATASE 58 U/L (46-116); ASPARTATE AMINO TRANSFERASE 21 U/L (15-37); BILIRUBIN,TOTAL 0.4 MG/DL (0.2-1.0)
[2019-06-19 23:20] VITALS: BP 111/72
[2019-06-19 23:25] VITALS: BP 111/72
--- NOTE | 2019-06-19 23:25 | NUR ---
ER DISCHARGE NOTE: Patient is cleared to be discharged per ERMD, pt is aox4, on room air, with stable vital signs. pt was given dc instructions, pt was able to verbalize understanding, pt id band and iv site removed without complications. pt is able to ambulate with steady gait. pt took all belongings.
== END 2019-06-19 23:25 | disposition home or self-care (01) ==
LOC: EDBD 21:22 → EMR 21:44
DX: M62.838 Other muscle spasm (principal); Z91.19 Patient's noncompliance with other medical treatment and regimen; F12.90 Cannabis use, unspecified, uncomplicated; Z88.0 Allergy status to penicillin; Z86.69 Personal history of other diseases of the nervous system and sense organs
CPT/HCPCS: 36415; 80053; 80307; 85025; 96360; G0480; G0481; J7030; Z7502; 99284

== ENCOUNTER 2019-07-11 16:20 | Emergency (ER) | payer MEDICAID ==
[~2019-07-11] VITALS: Ht 162.6 cm; Wt 59.0 kg
[~2019-07-11 16:20] MED LIST changes: +levETIRAcetam 1,000mg/NS100ml 100 ML IVPB ONE
--- NOTE | 2019-07-11 16:20 | Emergency Room Report ---
History of Present Illness General Chief Complaint: Seizure Present Illness HPI 19-year-old female presents after a witnessed seizure. Patient has a history of seizure, she was previously on Keppra, but has been noncompliant for the past 3 months. Last seizure was approximately 3 months ago. She does follow with neurology but next appointment is in 1 month. She denies any trauma. Blood glucose with EMS 122. She denies any pain to me at this time. Allergies: Coded Allergies: AMOXICILLIN (Verified Allergy, Unknown, 05/23/18) PENICILLINS (Verified Allergy, Unknown, 05/23/18) Uncoded Allergies: PCN (Allergy, Unknown, 06/19/19) COVID-19 Screening Contact w/high risk pt: No Recent Travel to affected area: No Experienced COVID-19 symptoms?: No Patient History Last Menstrual Period: unk Reviewed Nursing Documentation: PMH: Agreed; PSxH: Agreed Nursing Documentation-PMH Hx Seizures: Yes Review of Systems All Other Systems: negative except mentioned in HPI Physical Exam Vital Signs Date Time Temp Pulse Resp B/P (MAP) Pulse Ox O2 Delivery O2 Flow Rate FiO2 07/11/19 16:04 97.9 90 16 126/79 (95) 98 Room Air Sp02 EP Interpretation: reviewed, normal General Appearance: well appearing, no apparent distress Head: normocephalic, atraumatic Eyes: bilateral eye PERRL, bilateral eye EOMI ENT: hearing grossly normal, moist mucus membranes Neck: full range of motion, supple Respiratory: lungs clear, normal breath sounds, no rhonchi, no respiratory distress, no retraction, no wheezing Cardiovascular #1: normal peripheral pulses, regular rate, rhythm, no murmur Gastrointestinal: non tender, soft, non-distended, no guarding Neurologic: alert, oriented x3, cerebellar normal, speech normal, normal gait, no focal defects Skin: normal color, warm/dry Medical Decision Making Diagnostic Impression: Primary Impression: Recurrent seizures ER Course Patient presented after a recurrent seizure. I suspect her seizure is secondary to medication noncompliance. Patient has been off her anticonvulsants for the past 3 months. Is agreeable to restart her anticonvulsants in the ER. Keppra was ordered. Patient had basic laboratory studies ordered, will be observed in the ER. negative. Laboratory studies within normal limits. Patient had a recurrent seizure activity in the ER. Patient stable for discharge. Refill of her Keppra provided. I expressed the importance of compliance with her medications. Patient does have neurology follow-up. Stable for discharge Laboratory Tests Test 07/11/19 16:20 White Blood Count 8.7 K/UL (4.8-10.8) Red Blood Count 4.34 M/UL (4.20-5.40) Hemoglobin 11.0 G/DL (12.0-16.0) L Hematocrit 36.4 % (37.0-47.0) L Mean Corpuscular Volume 84 FL (80-99) Mean Corpuscular Hemoglobin 25.4 PG (27.0-31.0) L Mean Corpuscular Hemoglobin Concent 30.2 G/DL (32.0-36.0) L Red Cell Distribution Width 17.0 % (11.6-14.8) H Platelet Count 375 K/UL (150-450) Mean Platelet Volume 6.5 FL (6.5-10.1) Neutrophils (%) (Auto) 58.0 % (45.0-75.0) Lymphocytes (%) (Auto) 30.5 % (20.0-45.0) Monocytes (%) (Auto) 7.5 % (1.0-10.0) Eosinophils (%) (Auto) 1.5 % (0.0-3.0) Basophils (%) (Auto) 2.6 % (0.0-2.0) H Sodium Level 138 MMOL/L (136-145) Potassium Level 3.6 MMOL/L (3.5-5.1) Chloride Level 102 MMOL/L (98-107) Carbon Dioxide Level 21 MMOL/L (21-32) Anion Gap 15 mmol/L (5-15) Blood Urea Nitrogen 12 mg/dL (7-18) Creatinine 0.8 MG/DL (0.55-1.30) Estimated Glomerular Filtration Rate > 60 mL/min (>60) Glucose Level 91 MG/DL (74-106) Calcium Level 9.2 MG/DL (8.5-10.1) Total Bilirubin 0.5 MG/DL (0.2-1.0) Aspartate Amino Transferase (AST) 18 U/L (15-37) Alanine Aminotransferase (ALT) 16 U/L (12-78) Alkaline Phosphatase 52 U/L (46-116) Total Protein 7.6 G/DL (6.4-8.2) Albumin 3.9 G/DL (3.4-5.0) Globulin 3.7 g/dL Albumin/Globulin Ratio 1.1 (1.0-2.7) Human Chorionic Gonadotropin, Qual Negative (NEGATIVE) Last Vital Signs Date Time Temp Pulse Resp B/P (MAP) Pulse Ox O2 Delivery O2 Flow Rate FiO2 07/11/19 16:04 97.9 90 16 126/79 (95) 98 Room Air Status: improved Reevaluation Impression Patient alert oriented no acute distress Disposition: HOME, SELF-CARE Condition: Stable Scripts Levetiracetam (KEPPRA) 500 Mg Tablet 500 MG ORAL EVERY 12 HOURS, #60 TAB 1 Refill Prov: Trent Loepz M.D. 07/11/19 Additional Instructions: Patient is instructed to follow-up with her primary care doctor, primary care clinic or [facility] clinic in 1 to 2 days. Patient instructed to return for any worsening symptoms or concerns. Please note that the documentation in this note was used with [employer] Clarkeation technology. Pleae be advised that this may lead to erroneous text due to misinterpretation by the dictation software Trent Lopez M.D. Jul 11, 2019 16:19
[2019-07-11 16:25] VITALS: BP 126/79
--- NOTE | 2019-07-11 16:25 | NUR ---
ED Nurse Note: Pt was brought in by ambulance from home d/t post-ictal witnessed seizure from home. Per EMS seizure was witnessed by mother; sz lasted for 2 mins, no head/oral trauma. Per report pt has hx of epilepsy and kidney problems. Pt is AOx4, calm and cooperative. VSS, on RA, no acute distress noted. Placed on bed, hooked to building maintenance technician; seizure pads applied; bed on low position. Pt arrived with IV established by EMS on LT AC with 18G; patent and kempt; obtained blood and urine specimen, sent to labs.
[2019-07-11] MEDS ORDERED: levETIRAcetam 1,000mg/NS100ml 100 ML IVPB ONE (16:42)
[2019-07-11 16:48] LABS: BASOPHILS % (AUTO) 2.6 % (0.0-2.0); EOSINOPHILS % (AUTO) 1.5 % (0.0-3.0); HEMATOCRIT 36.4 % (37.0-47.0); LYMPHOCYTES % (AUTO) 30.5 % (20.0-45.0); MEAN CORPUSCULAR VOLUME 84 FL (80-99); MONOCYTES % (AUTO) 7.5 % (1.0-10.0); PLATELET COUNT 375 K/UL (150-450); RED BLOOD COUNT 4.34 M/UL (4.20-5.40); WHITE BLOOD COUNT 8.7 K/UL (4.8-10.8)
[2019-07-11 16:59] LABS: ANION GAP 15 mmol/L (5-15); BLOOD UREA NITROGEN 12 mg/dL (7-18); CALCIUM 9.2 MG/DL (8.5-10.1); CARBON DIOXIDE 21 MMOL/L (21-32); CHLORIDE 102 MMOL/L (98-107); CREATININE 0.8 MG/DL (0.55-1.30); POTASSIUM 3.6 MMOL/L (3.5-5.1); SODIUM 138 MMOL/L (136-145)
[2019-07-11 17:05] LABS: ALANINE AMINOTRANSFERASE 16 U/L (12-78); ALBUMIN 3.9 G/DL (3.4-5.0); ALBUMIN/GLOBULIN RATIO 1.1 (1.0-2.7); ALKALINE PHOSPHATASE 52 U/L (46-116); ASPARTATE AMINO TRANSFERASE 18 U/L (15-37); BILIRUBIN,TOTAL 0.5 MG/DL (0.2-1.0)
[2019-07-11] MEDS ORDERED: KEPPRA500 M4 ORAL (17:34)
[2019-07-11 17:47] VITALS: BP 110/78
== END 2019-07-11 17:47 | disposition home or self-care (01) ==
LOC: EDBD 16:20 → EMR 16:39
DX: G40.909 Epilepsy, unspecified, not intractable, without status epilepticus (principal); Z88.0 Allergy status to penicillin
CPT/HCPCS: 36415; 80053; 84703; 85025; 96374; J1953; Z7502; 99284

== ENCOUNTER 2019-08-18 13:51 | Emergency (ER) | payer MEDICAID ==
[~2019-08-18] VITALS: Ht 160 cm; Wt 56.7 kg
[~2019-08-18 13:51] MED LIST changes: -levETIRAcetam 1,000mg/NS100ml 100 ML IVPB ONE
[2019-08-18 13:55] VITALS: BP 114/68
--- NOTE | 2019-08-18 13:55 | NUR ---
ED Nurse Note: Patient TERELL COUCH from home c/o tonic clonic seizure, witnessed by family x 1 min. Pt has hx of seizure. Per mother, last alcohol intake was last night. Pt AAO x3. Afebrile. Not in any distress. Pt placed on monitoring analyst. Seizure precaution observed.
--- NOTE | 2019-08-18 14:07 | NUR ---
ED Nurse Note: IV line estbalished. Blood specimen collected and sent to lab.
[2019-08-18 14:23] LABS: BASOPHILS % (AUTO) 1.6 % (0.0-2.0); EOSINOPHILS % (AUTO) 2.5 % (0.0-3.0); HEMATOCRIT 35.9 % (37.0-47.0); HEMOGLOBIN 11.4 G/DL (12.0-16.0); LYMPHOCYTES % (AUTO) 40.3 % (20.0-45.0); MEAN CORPUSCULAR VOLUME 82 FL (80-99); MONOCYTES % (AUTO) 8.2 % (1.0-10.0); NEUTROPHILS % (AUTO) 47.5 % (45.0-75.0); PLATELET COUNT 363 K/UL (150-450); RED CELL DISTRIBUTION WIDTH 15.1 % (11.6-14.8); WHITE BLOOD COUNT 9.7 K/UL (4.8-10.8)
--- NOTE | 2019-08-18 14:24 | NUR ---
ED Nurse Note: Pt was taken for CT via nadja, accompanied by a tech.
[2019-08-18] MEDS ORDERED: levETIRAcetam 500mg/NS100ml 100 ML IVPB ONE (14:30)
[2019-08-18] MEDS ORDERED: LORazepam Inj 2mg/ml 1ml IV ONE (14:30)
--- NOTE | 2019-08-18 14:31 | NUR ---
ED Nurse Note: Pt came back from the CT. Per form grader, pt had a seizure. Addendum: 08/18/19 at 1446 by JOSIAS ED Nurse Note: ERPA notified. Ativan IV given as ordered.
[2019-08-18 14:33] LABS: ANION GAP 11 mmol/L (5-15); BLOOD UREA NITROGEN 8 mg/dL (7-18); CALCIUM 8.6 MG/DL (8.5-10.1); CARBON DIOXIDE 25 MMOL/L (21-32); CHLORIDE 107 MMOL/L (98-107); POTASSIUM 3.5 MMOL/L (3.5-5.1); SODIUM 143 MMOL/L (136-145)
[2019-08-18 14:38] LABS: ALANINE AMINOTRANSFERASE 22 U/L (12-78); ALBUMIN 3.9 G/DL (3.4-5.0); ALKALINE PHOSPHATASE 54 U/L (46-116); ASPARTATE AMINO TRANSFERASE 23 U/L (15-37); BILIRUBIN,TOTAL 0.5 MG/DL (0.2-1.0)
--- NOTE | 2019-08-18 14:49 | NUR ---
ED Nurse Note: loc Landon
--- NOTE | 2019-08-18 14:49 | NUR ---
ED Nurse Note: Xray at bedside.
[2019-08-18 15:00] VITALS: BP 121/72
--- NOTE | 2019-08-18 15:06 | NUR ---
ED Nurse Note: Urine specimen collected and sent to lab.
--- NOTE | 2019-08-18 15:33 | Diagnostic Imaging Report ---
Indications: Seizures Technique: Spiral acquisitions obtained through the brain. Angled axial and coronal 5 x 5 mm slices were reconstructed. Total dose length product 992 mGycm. CTDI vol(s) 53 mGy. Dose reduction achieved using automated exposure control Comparison: 01/16/2019 Findings: No acute intracranial hemorrhage or edema. No mass effect nor midline shift. Normal jimenez-white differentiation. Normal size ventricles and extra-axial CSF spaces. The mastoids are clear. The calvarium is intact. Visualized sinuses are unremarkable. Hyperattenuating focus of the roof of the third ventricle may reflect a small colloid cyst. No significant interim change Impression: No acute process The CT scanner at [facility] is accredited by the [employer] and the scans are performed using protocols designed to limit radiation exposure to as low as reasonably achievable to attain images of sufficient resolution adequate for diagnostic evaluation.
[2019-08-18 15:52] LABS: APPEARANCE,URINE CLEAR; BILIRUBIN, URINE NEGATIVE (NEGATIVE); COLOR,URINE PALE YELLOW; GLUCOSE, URINE (UA) NEGATIVE (NEGATIVE); KETONES,URINE 1+ (NEGATIVE); LEUKOCYTE ESTERASE ,URINE NEGATIVE (NEGATIVE); NITRITE,URINE NEGATIVE (NEGATIVE); PH,URINE 5 (4.5-8.0); PROTEIN,URINE 2+ (NEGATIVE); UROBILINOGEN,URINE NORMAL MG/DL (0.0-1.0)
[2019-08-18 17:00] VITALS: BP 106/68
--- NOTE | 2019-08-18 17:27 | Diagnostic Imaging Report ---
Indication: Chest pain Technique: One view of the chest Comparison: 01/11/2019 Findings: Lungs and pleural spaces are clear. Heart size is normal. No significant change Impression: No acute process
--- NOTE | 2019-08-18 18:04 | Emergency Room Report ---
History of Present Illness General Chief Complaint: Seizure Source: EMS Present Illness HPI 27-year-old female with history of seizure disorder as well as alcohol abuse has been here multiple times due to alcohol induced seizure brought in by [facility] due to seizure. Patient appears to be stable with stable vital signs, afebrile within normal limits. No medications were given in route. Denies drug use. Appears to be intoxicated. Poor historian. Head appears to be atraumatic. Allergies: Coded Allergies: AMOXICILLIN (Verified Allergy, Unknown, 05/23/18) PENICILLINS (Verified Allergy, Unknown, 05/23/18) Uncoded Allergies: PCN (Allergy, Unknown, 06/19/19) COVID-19 Screening Contact w/high risk pt: No Recent Travel to affected area: No Experienced COVID-19 symptoms?: No Patient History Past Medical History: see triage record Past Surgical History: unable to obtain Pertinent Family History: unable to obtain Social History: Reports: alcohol use Last Menstrual Period: unk Now: No Immunizations: UTD Reviewed Nursing Documentation: PMH: Agreed; PSxH: Agreed Nursing Documentation-PMH Past Medical History: No History, Except For Hx Cardiac Problems: No Hx Hypertension: No Hx Pacemaker: No Hx Asthma: No Hx COPD: No Hx Diabetes: No Hx Cancer: No Hx Gastrointestinal Problems: No Hx Dialysis: No Hx Neurological Problems: No Hx Cerebrovascular Accident: No Hx Seizures: Yes Review of Systems All Other Systems: negative except mentioned in HPI Physical Exam Vital Signs Date Time Temp Pulse Resp B/P (MAP) Pulse Ox O2 Delivery O2 Flow Rate FiO2 08/18/19 13:42 98.1 101 20 114/68 (83) 99 Room Air 08/18/19 15:00 2.0 Sp02 EP Interpretation: reviewed, normal General Appearance: alert Head: normocephalic, atraumatic Eyes: bilateral eye normal inspection, bilateral eye PERRL ENT: hearing grossly normal, normal pharynx, no angioedema, normal voice Neck: full range of motion, supple/symm/no masses Respiratory: chest non-tender, lungs clear, normal breath sounds, no rhonchi, speaking full sentences Cardiovascular #1: regular rate, rhythm, no edema, no murmur Cardiovascular #2: 2+ carotid (R), 2+ carotid (L) Gastrointestinal: normal bowel sounds, non tender, soft, non-distended, no guarding, no rebound Rectal: deferred Genitourinary: no CVA tenderness Musculoskeletal: back normal, no calf tenderness Neurologic: alert, motor strength/tone normal, sensory intact, responsive Psychiatric: other - Intoxicated Skin: no rash Lymphatic: no adenopathy Medical Decision Making PA Attestation All diagnoses and treatment plans were reviewed and discussed with my supervising physician Dr. Espinoza Diagnostic Impression: Primary Impression: Seizure disorder Additional Impression: Alcohol intoxication ER Course 27-year-old female with history of seizure disorder as well as alcohol abuse has been here multiple times due to alcohol induced seizure brought in by [facility] due to seizure. Patient appears to be stable with stable vital signs, afebrile within normal limits. No medications were given in route. Denies drug use. Appears to be intoxicated. Poor historian. Head appears to be atraumatic. Ddx considered but are not limited to: Dizziness due to alcohol intoxication, dizziness unspecified, dizziness due to head trauma, dizziness secondary to cardiac reasons, seizures Vital signs: are WNL, pt. is afebrile H&PE are most consistent with: Seizure disorder, alcohol intoxication ORDERS: Seizure order set ER intervention: NS bolus, Ativan, Keppra, Zofran, Pepcid DISCHARGE: At this time pt. is stable for d/c to home. Will provide printed patient care instructions, and any necessary prescriptions. Care plan and follow up instructions have been discussed with the patient prior to discharge. Patient to avoid drinking alcohol, follow with primary doctor, take seizure medication. If worsening symptoms return to the emergency room EKG Diagnostic Results Rate: normal Rhythm: NSR ST Segments: no acute changes Other Impression No acute ST changes Chest X-Ray Diagnostic Results Chest X-Ray Diagnostic Results : Chest X-Ray Ordered: Yes # of Views/Limited/Complete: 1 View Indication: Other EP Interpretation: Yes PA Xray: Interpretation reviewed, by supervising MD, and agrees with findings. Interpretation: no consolidation, no effusion, no pneumothorax Impression: No acute disease Electronically Signed by: Dayanna Qiu PA-C CT/MRI/US Diagnostic Results CT/MRI/US Diagnostic Results : Imaging Test Ordered: Head CT no contrast Impression Within normal limits no intracranial bleed Last Vital Signs Date Time Temp Pulse Resp B/P (MAP) Pulse Ox O2 Delivery O2 Flow Rate FiO2 5/11/20 17:00 98.1 91 21 106/68 99 Room Air 08/18/19 15:00 2.0 Disposition: HOME, SELF-CARE Condition: Stable Referrals: [facility] (PCP) Patient Instructions: Alcohol Intoxication, [id number], Seizure, Adult Dayanna Elias August 18, 2019 18:04
[2019-08-18] MEDS ORDERED: KEPPRA500 M4 ORAL (18:55)
[2019-08-18 19:09] VITALS: BP 115/69
--- NOTE | 2019-08-18 19:09 | NUR ---
ED Nurse Note: Pt cleared by ERMD for discharge. DC instructions/prescription was given and explained to pt and verbalized understanding of teachings. All medical deviecs such as ID band and IV line removed. Pt is AAO x4, ambulatory and left with all personal belongings.
== END 2019-08-18 19:10 | disposition home or self-care (01) ==
LOC: EDBD 13:51 → EMR 14:26
DX: G40.909 Epilepsy, unspecified, not intractable, without status epilepticus (principal); F10.129 Alcohol abuse with intoxication, unspecified; Z88.0 Allergy status to penicillin
CPT/HCPCS: 36415; 70450; 71045; 80053; 80156; 80164; 80184; 80185; 80307; 81003; 81025; 84484; 85025; 93005; 96361; 96374; 96375; G0480; J1953; J2405; J7030; S0028; Z7502; 99284

== ENCOUNTER 2020-02-13 07:38 | Emergency (ER) | payer MEDICAID ==
[~2020-02-13] VITALS: Ht 154.9 cm; Wt 52.2 kg
--- NOTE | 2020-02-13 07:52 | Emergency Room Report ---
History of Present Illness General Chief Complaint: Abdominal Pain Source: Patient Present Illness HPI Patient presenting with a complaint of abdominal pain and vomiting for 3 days. This started after she was started be treated for trichomonas. She has been unable to keep down her medication. She has been trying to drink Gatorade recently. She says has not been staying down. The pain is rated 10/10 and more epigastric. She has not moved her bowels for several days. She denies any dysuria. Also she is on her menstruation time. She denies fevers or chills. She has no medicine for nausea at home. Antibiotic she was prescribed with Flagyl. She rates the pain 10/10. It is more epigastric and nonradiating. No upper respiratory symptomatology. Patient has a history of recurrent seizures. She denies exposure to Covid positive contacts. No fevers, chills, chest pain, palpitations, shortness of breath, joint pain, rashes, depression, anxiety, visual changes, dizziness, headache. Allergies: Coded Allergies: AMOXICILLIN (Verified Allergy, Unknown, 05/23/18) PENICILLINS (Verified Allergy, Unknown, 05/23/18) Uncoded Allergies: PCN (Allergy, Unknown, 06/19/19) COVID-19 Screening Contact w/high risk pt: No Recent Travel to affected area: No Experienced COVID-19 symptoms?: No COVID-19 Testing performed INSPECTOR MISSILE: No Patient History Past Medical History: see triage record, old chart reviewed Social History: Reports: smoking, drug use - THC Social History Narrative From home Now: No Reviewed Nursing Documentation: PMH: Agreed; PSxH: Agreed Nursing Documentation-PMH Past Medical History: No History, Except For Hx Cardiac Problems: No Hx Hypertension: No Hx Pacemaker: No Hx Asthma: No Hx COPD: No Hx Diabetes: No Hx Cancer: No Hx Gastrointestinal Problems: No Hx Dialysis: No Hx Neurological Problems: No Hx Cerebrovascular Accident: No Hx Seizures: Yes Review of Systems All Other Systems: negative except mentioned in HPI Physical Exam Vital Signs Date Time Temp Pulse Resp B/P (MAP) Pulse Ox O2 Delivery O2 Flow Rate FiO2 02/13/20 07:43 98.2 56 19 152/93 (112) 99 Room Air Sp02 EP Interpretation: reviewed, normal General Appearance: well appearing, no apparent distress, GCS 15, non-toxic Head: normocephalic Eyes: bilateral eye normal inspection, bilateral eye PERRL, bilateral eye EOMI ENT: moist mucus membranes Neck: supple Respiratory: lungs clear, normal breath sounds Cardiovascular #1: regular rate, rhythm Cardiovascular #2: 2+ radial (R) Gastrointestinal: normal inspection, non-distended, no guarding, no rebound, tenderness - Epigastric, decreased bowel sounds Genitourinary: no CVA tenderness Musculoskeletal: back normal, normal range of motion, gait/station normal Neurologic: alert, oriented x3, grossly normal Psychiatric: mood/affect normal Skin: no rash, warm/dry Medical Decision Making Diagnostic Impression: Primary Impression: Abdominal pain Qualified Codes: R10.9 - Unspecified abdominal pain Additional Impressions: Nausea & vomiting Qualified Codes: R11.2 - Nausea with vomiting, unspecified UTI (urinary tract infection) Qualified Codes: N39.0 - Urinary tract infection, site not specified H/O tonic-clonic seizures H/O trichomonal vaginitis ER Course Patient presents with abdominal pain vomiting without diarrhea. Differential includes gastritis, reaction to Flagyl, cyclic vomiting, dehydration, pancreatitis amongst others. Patient evaluated with labs. Not a surgical abd omen at this time. Patient will also be received IV hydration, Zofran, morphine. The patient has a history of recurrent seizures and therefore will receive a dose of IV Keppra. Also she will receive a dose of metronidazole IV. Serial abdominal exams are indicated. Patient is placed on a personnel monitor. Labs with mild leukocytosis. CMP essentially unremarkable. Patient greatly improved with treatment. Still complains of mild pain. Wants to eat solids. Advised to drink clear liquids. Tolerating p.o. well. Rocephin given for UTI. Urinalysis urinalysis was obtained after morphine given. Positive for THC. Discussed results with patient. Discussed treatment plan. Discussed outpatient observation. Patient stable for outpatient observation and treatment. Laboratory Tests Test 02/13/20 08:05 02/13/20 08:20 02/13/20 09:45 White Blood Count 13.2 K/UL (4.8-10.8) H Red Blood Count 4.78 M/UL (4.20-5.40) Hemoglobin 12.8 G/DL (12.0-16.0) Hematocrit 40.1 % (37.0-47.0) Mean Corpuscular Volume 84 FL (80-99) Mean Corpuscular Hemoglobin 26.8 PG (27.0-31.0) L Mean Corpuscular Hemoglobin Concent 32.0 G/DL (32.0-36.0) Red Cell Distribution Width 17.8 % (11.6-14.8) H Platelet Count 376 K/UL (150-450) Mean Platelet Volume 7.0 FL (6.5-10.1) Neutrophils (%) (Auto) 84.4 % (45.0-75.0) H Lymphocytes (%) (Auto) 11.0 % (20.0-45.0) L Monocytes (%) (Auto) 3.8 % (1.0-10.0) Eosinophils (%) (Auto) 0.1 % (0.0-3.0) Basophils (%) (Auto) 0.7 % (0.0-2.0) Prothrombin Time 11.4 SEC (9.30-11.50) Prothrombin Time INR 1.0 (0.9-1.1) Activated Partial Thromboplast Time 25 SEC (23-33) Sodium Level 138 MMOL/L (136-145) Potassium Level 3.4 MMOL/L (3.5-5.1) L Chloride Level 100 MMOL/L (98-107) Carbon Dioxide Level 26 MMOL/L (21-32) Anion Gap 12 mmol/L (5-15) Blood Urea Nitrogen 17 mg/dL (7-18) Creatinine 1.1 MG/DL (0.55-1.30) Estimated Glomerular Filtration Rate > 60 mL/min (>60) Glucose Level 149 MG/DL (74-106) H Calcium Level 9.4 MG/DL (8.5-10.1) Total Bilirubin 0.6 MG/DL (0.2-1.0) Aspartate Amino Transferase (AST) 28 U/L (15-37) Alanine Aminotransferase (ALT) 21 U/L (12-78) Alkaline Phosphatase 56 U/L (46-116) Total Protein 8.0 G/DL (6.4-8.2) Albumin 4.5 G/DL (3.4-5.0) Globulin 3.5 g/dL Albumin/Globulin Ratio 1.3 (1.0-2.7) Lipase 111 U/L (73-393) Urine Color Yellow Urine Appearance Clear Urine pH 6 (4.5-8.0) Urine Specific [place] 1.020 (1.005-1.035) Urine Protein 2+ (NEGATIVE) H Urine Glucose (UA) Negative (NEGATIVE) Urine Ketones 4+ (NEGATIVE) H Urine Blood 5+ (NEGATIVE) H Urine Nitrite Negative (NEGATIVE) Urine Bilirubin Negative (NEGATIVE) Urine Urobilinogen 1 MG/DL (0.0-1.0) H Urine Leukocyte Esterase 3+ (NEGATIVE) H Urine RBC 5-10 /HPF (0 - 2) H Urine WBC 15-20 /HPF (0 - 2) H Urine Squamous Epithelial Cells Few /LPF (NONE/OCC) Urine Bacteria Few /HPF (NONE) Urine HCG, Qualitative Negative (NEGATIVE) Urine Opiates Screen Positive (NEGATIVE) H Urine Barbiturates Screen Negative (NEGATIVE) Phencyclidine (PCP) Screen Negative (NEGATIVE) Urine Amphetamines Screen Negative (NEGATIVE) Urine Benzodiazepines Screen Negative (NEGATIVE) Urine Cocaine Screen Negative (NEGATIVE) Urine Marijuana (THC) Screen Positive (NEGATIVE) H Rhythm Strip Diag. Results EP Interpretation: yes Rhythm: NSR, no PVC's, no ectopy Last Vital Signs Date Time Temp Pulse Resp B/P (MAP) Pulse Ox O2 Delivery O2 Flow Rate FiO2 02/13/20 12:00 98.0 61 17 121/80 99 Room Air Status: improved Disposition: HOME, SELF-CARE Condition: Improved Scripts Hydrocodone Bit/Acetaminophen 5-325* (NORCO 5-325 TABLET*) 1 Each Tablet 1 TAB ORAL Q6H PRN for FOR PAIN, #6 TAB 0 Refills Prov: Bib Del Real MD 02/13/20 Nitrofurantoin Monohyd/M-Cryst* (MACROBID 100 MG*) 100 Mg Capsule 100 MG ORAL EVERY 12 HOURS, #14 CAP Prov: Bib Del Real MD 02/13/20 Promethazine HCl (Promethegan) 25 Mg Supp.rect 25 MG RECTAL Q8HR PRN for Nausea & Vomiting, #3 SUPP Prov: Bib Del Real MD 02/13/20 Promethazine Hcl* (PHENERGAN*) 25 Mg Tablet 25 MG ORAL Q8HR PRN for Nausea & Vomiting, #10 TAB 0 Refills Prov: Bib Del Real MD 02/13/20 Bib Del Real MD Feb 13, 2020 07:52
[2020-02-13 08:00] VITALS: BP 152/93
[2020-02-13] MEDS ORDERED: Morphine Sulfate 4mg/ml Inj (IV USE ONLY) IVP ONE (08:00)
[2020-02-13] MEDS ORDERED: levETIRAcetam 500mg/NS100ml 100 ML IVPB ONE (08:00)
--- NOTE | 2020-02-13 08:00 | NUR ---
ED Nurse Note: Patient came to ED c/o n/v and 8/10 abdominal pain x 3 days. Patient AxO x 4, on the cardiac monitor technician.
[2020-02-13 08:37] LABS: BASOPHILS % (AUTO) 0.7 % (0.0-2.0); EOSINOPHILS % (AUTO) 0.1 % (0.0-3.0); HEMATOCRIT 40.1 % (37.0-47.0); HEMOGLOBIN 12.8 G/DL (12.0-16.0); MEAN CORPUSCULAR VOLUME 84 FL (80-99); MONOCYTES % (AUTO) 3.8 % (1.0-10.0); NEUTROPHILS % (AUTO) 84.4 % (45.0-75.0); PLATELET COUNT 376 K/UL (150-450); RED BLOOD COUNT 4.78 M/UL (4.20-5.40); RED CELL DISTRIBUTION WIDTH 17.8 % (11.6-14.8); WHITE BLOOD COUNT 13.2 K/UL (4.8-10.8)
[2020-02-13 08:49] LABS: ANION GAP 12 mmol/L (5-15); BLOOD UREA NITROGEN 17 mg/dL (7-18); CALCIUM 9.4 MG/DL (8.5-10.1); CARBON DIOXIDE 26 MMOL/L (21-32); CHLORIDE 100 MMOL/L (98-107); CREATININE 1.1 MG/DL (0.55-1.30); POTASSIUM 3.4 MMOL/L (3.5-5.1); SODIUM 138 MMOL/L (136-145)
[2020-02-13 08:54] LABS: ALANINE AMINOTRANSFERASE 21 U/L (12-78); ALBUMIN 4.5 G/DL (3.4-5.0); ALBUMIN/GLOBULIN RATIO 1.3 (1.0-2.7); ALKALINE PHOSPHATASE 56 U/L (46-116); ASPARTATE AMINO TRANSFERASE 28 U/L (15-37); BILIRUBIN,TOTAL 0.6 MG/DL (0.2-1.0)
[2020-02-13 09:57] LABS: APPEARANCE,URINE CLEAR; BILIRUBIN, URINE NEGATIVE (NEGATIVE); GLUCOSE, URINE (UA) NEGATIVE (NEGATIVE); KETONES,URINE 4+ (NEGATIVE); LEUKOCYTE ESTERASE ,URINE 3+ (NEGATIVE); NITRITE,URINE NEGATIVE (NEGATIVE); PH,URINE 6 (4.5-8.0); PROTEIN,URINE 2+ (NEGATIVE); UROBILINOGEN,URINE 1 MG/DL (0.0-1.0)
[2020-02-13 10:00] VITALS: BP 116/79
[2020-02-13 10:09] LABS: COLOR,URINE YELLOW
[2020-02-13] MEDS ORDERED: cefTRIAXone 1 GM in NS 55 ML IVPB ONE (10:30)
[2020-02-13] MEDS ORDERED: NORCO 5-325 TA1 EAC1 ORAL (10:55)
[2020-02-13] MEDS ORDERED: PHENERGAN SUPP25 MG RECTAL (10:55)
[2020-02-13] MEDS ORDERED: NITROFURANTOIN100 M2 ORAL (10:55)
[2020-02-13] MEDS ORDERED: PHENERGAN25 M1 ORAL (10:55)
--- NOTE | 2020-02-13 11:03 | NUR ---
ED Nurse Note: Patient resting in bed, no s/s of acute distress. Able to tolerate oral fluids and medications.
[2020-02-13 12:00] VITALS: BP 121/80
== END 2020-02-13 12:00 | disposition home or self-care (01) ==
LOC: EMR 08:10
DX: R11.2 Nausea with vomiting, unspecified (principal); R10.9 Unspecified abdominal pain; N39.0 Urinary tract infection, site not specified; Z88.0 Allergy status to penicillin
CPT/HCPCS: 36415; 80053; 80307; 81003; 81025; 83690; 85025; 85610; 85730; 87086; 96361; 96365; 96367; 96375; J0696; J1953; J2270; J2405; J7030; Z7502; 99284

== ENCOUNTER 2020-03-02 15:21 | Emergency (ER) | payer MEDICAID ==
[~2020-03-02] VITALS: Ht 154.9 cm; Wt 51.7 kg
[~2020-03-02 15:21] MED LIST changes: +NORCO 5-325 TA1 EAC1 ORAL; +PHENERGAN SUPP25 MG RECTAL; +PHENERGAN25 M1 ORAL
[2020-03-02 15:30] VITALS: BP 107/69
--- NOTE | 2020-03-02 15:30 | NUR ---
ED Nurse Note: Pt walked in from home, steady gait, with complaints of a unwitnessed siezure at home. Her breathing is unlabored, a/0 x4, can answer in complete sentances that is appropriate for age and development. she says she has some head pain. Bed rails are padded and suction is at bedside. She is refusing to use a bed alex at this time and is insisting on walking to the restroom. No complaint of chest alex .
[2020-03-02] MEDS ORDERED: Morphine Sulfate 4mg/ml Inj (IV USE ONLY) IVP ONE (15:45)
[2020-03-02] MEDS ORDERED: levETIRAcetam 500mg/NS100ml 100 ML IV ONE (15:45)
[2020-03-02] MEDS ORDERED: LORazepam Inj 2mg/ml 1ml IV ONE (15:45)
[2020-03-02 16:11] LABS: BASOPHILS % (AUTO) 1.2 % (0.0-2.0); EOSINOPHILS % (AUTO) 0.3 % (0.0-3.0); HEMATOCRIT 40.1 % (37.0-47.0); HEMOGLOBIN 12.6 G/DL (12.0-16.0); LYMPHOCYTES % (AUTO) 18.3 % (20.0-45.0); MEAN CORPUSCULAR VOLUME 84 FL (80-99); MONOCYTES % (AUTO) 3.9 % (1.0-10.0); NEUTROPHILS % (AUTO) 76.2 % (45.0-75.0); PLATELET COUNT 382 K/UL (150-450); RED BLOOD COUNT 4.74 M/UL (4.20-5.40); RED CELL DISTRIBUTION WIDTH 17.1 % (11.6-14.8); WHITE BLOOD COUNT 8.5 K/UL (4.8-10.8)
[2020-03-02 16:26] LABS: ANION GAP 10 mmol/L (5-15); BLOOD UREA NITROGEN 9 mg/dL (7-18); CALCIUM 8.9 MG/DL (8.5-10.1); CARBON DIOXIDE 25 MMOL/L (21-32); CHLORIDE 103 MMOL/L (98-107); CREATININE 0.7 MG/DL (0.55-1.30); POTASSIUM 3.8 MMOL/L (3.5-5.1); SODIUM 138 MMOL/L (136-145)
[2020-03-02 16:31] LABS: ALANINE AMINOTRANSFERASE 24 U/L (12-78); ALBUMIN 4.1 G/DL (3.4-5.0); ALBUMIN/GLOBULIN RATIO 1.1 (1.0-2.7); ALKALINE PHOSPHATASE 58 U/L (46-116); ASPARTATE AMINO TRANSFERASE 21 U/L (15-37); BILIRUBIN,TOTAL 0.6 MG/DL (0.2-1.0); CREATINE KINASE 127 U/L (26-308)
[2020-03-02 16:39] LABS: APPEARANCE,URINE SLIGHTLY CLOUDY; BILIRUBIN, URINE NEGATIVE (NEGATIVE); COLOR,URINE PALE YELLOW; GLUCOSE, URINE (UA) NEGATIVE (NEGATIVE); KETONES,URINE 4+ (NEGATIVE); LEUKOCYTE ESTERASE ,URINE 1+ (NEGATIVE); NITRITE,URINE NEGATIVE (NEGATIVE); PH,URINE 6 (4.5-8.0); PROTEIN,URINE NEGATIVE (NEGATIVE); UROBILINOGEN,URINE NORMAL MG/DL (0.0-1.0)
--- NOTE | 2020-03-02 17:35 | Emergency Room Report ---
History of Present Illness General Chief Complaint: Seizure Source: Patient Present Illness HPI Patient presents after a seizure this morning. She also has a headache. She states that she is coughing up blood afterwards symptoms coming from her nose although she did not bite her tongue. Only took a half a dose of her Keppra this morning. She denies any fevers or chills. Headache is rated 8-9/10 at this time. She says that this is common for her to have a headache after she has seizures. She denies any weakness or numbness. There was no head trauma. The patient has a history of seizures in the past. She is also required admission to the hospital in the past for uncontrolled seizures. Patient denies exposure to Covid positive contacts. She complains about a bump in the back of her head. The patient was seen by me on February 12 for abdominal pain and vomiting. She was able to be discharged to home. No sore throat, chest pain, palpitations, nausea, vomiting, diarrhea, dysuria, abdominal pain, shortness of breath, joint pain, depression, anxiety, dizziness. Allergies: Coded Allergies: AMOXICILLIN (Verified Allergy, Unknown, 05/23/18) PENICILLINS (Verified Allergy, Unknown, 05/23/18) Uncoded Allergies: PCN (Allergy, Unknown, 06/19/19) COVID-19 Screening Contact w/high risk pt: No Recent Travel to affected area: No Experienced COVID-19 symptoms?: No COVID-19 Testing performed DIESEL MOTOR MECHANIC: No Patient History Past Medical History: see triage record, old chart reviewed Social History: Reports: smoking, drug use - THC; Denies: alcohol use Social History Narrative From home Now: No Reviewed Nursing Documentation: PMH: Agreed; PSxH: Agreed Nursing Documentation-PMH Past Medical History: No History, Except For Hx Cardiac Problems: No Hx Hypertension: No Hx Pacemaker: No Hx Asthma: No Hx COPD: No Hx Diabetes: No Hx Cancer: No Hx Gastrointestinal Problems: No Hx Dialysis: No Hx Neurological Problems: No Hx Cerebrovascular Accident: No Hx Seizures: Yes Review of Systems All Other Systems: negative except mentioned in HPI Physical Exam Vital Signs Date Time Temp Pulse Resp B/P (MAP) Pulse Ox O2 Delivery O2 Flow Rate FiO2 03/02/20 15:34 98.1 69 17 127/89 (102) 98 Room Air Sp02 EP Interpretation: reviewed, normal General Appearance: well appearing, no apparent distress, GCS 15, non-toxic Head: normocephalic, atraumatic, other - No lesions of the scalp Eyes: bilateral eye normal inspection, bilateral eye PERRL, bilateral eye EOMI ENT: moist mucus membranes - No lingual lacerations or blood Neck: full range of motion, supple Respiratory: lungs clear, normal breath sounds Cardiovascular #1: regular rate, rhythm Cardiovascular #2: 2+ radial (R) Gastrointestinal: normal inspection, normal bowel sounds, non tender, no mass, non-distended Genitourinary: no CVA tenderness Musculoskeletal: back normal, normal range of motion, gait/station normal Neurologic: alert, motor strength/tone normal, community center worker III-XII nml as tested, DTRs symmetric, oriented x3, sensory intact, cerebellar normal, speech normal Psychiatric: mood/affect normal Skin: no rash - Including scalp exam, warm/dry Medical Decision Making Diagnostic Impression: Primary Impression: Seizure Additional Impression: Headache Qualified Codes: R51.9 - Headache, unspecified ER Course Patient presents after seizure this morning. Differential includes breakthrough seizure, electrolyte imbalance, noncompliance amongst others. As the patient has a nonfocal neurologic exam at this time CT of the head is not indicated. There is no evidence of meningitis at this time or infective process. The patient missed a dose of Keppra and therefore Keppra will be administered along with Ativan. In addition the patient will be treated for her headache with Zofran and morphine. Patient is placed on a neurobiologist and seizure precautions undertaken. EKG and labs ordered. Chest x-ray not indicated as the lungs are clear. EKG no injury. Labs unremarkable. Patient improved with treatment. No further seizure activity observed. Discussed findings and treatment plan with patient. Admonished patient to not miss or cut her Keppra dose. Patient stable for outpatient observation and treatment. Laboratory Tests Test 03/02/20 15:55 03/02/20 16:20 White Blood Count 8.5 K/UL (4.8-10.8) Red Blood Count 4.74 M/UL (4.20-5.40) Hemoglobin 12.6 G/DL (12.0-16.0) Hematocrit 40.1 % (37.0-47.0) Mean Corpuscular Volume 84 FL (80-99) Mean Corpuscular Hemoglobin 26.6 PG (27.0-31.0) L Mean Corpuscular Hemoglobin Concent 31.6 G/DL (32.0-36.0) L Red Cell Distribution Width 17.1 % (11.6-14.8) H Platelet Count 382 K/UL (150-450) Mean Platelet Volume 7.2 FL (6.5-10.1) Neutrophils (%) (Auto) 76.2 % (45.0-75.0) H Lymphocytes (%) (Auto) 18.3 % (20.0-45.0) L Monocytes (%) (Auto) 3.9 % (1.0-10.0) Eosinophils (%) (Auto) 0.3 % (0.0-3.0) Basophils (%) (Auto) 1.2 % (0.0-2.0) Sodium Level 138 MMOL/L (136-145) Potassium Level 3.8 MMOL/L (3.5-5.1) Chloride Level 103 MMOL/L (98-107) Carbon Dioxide Level 25 MMOL/L (21-32) Anion Gap 10 mmol/L (5-15) Blood Urea Nitrogen 9 mg/dL (7-18) Creatinine 0.7 MG/DL (0.55-1.30) Estimated Glomerular Filtration Rate > 60 mL/min (>60) Glucose Level 114 MG/DL (74-106) H Calcium Level 8.9 MG/DL (8.5-10.1) Total Bilirubin 0.6 MG/DL (0.2-1.0) Aspartate Amino Transferase (AST) 21 U/L (15-37) Alanine Aminotransferase (ALT) 24 U/L (12-78) Alkaline Phosphatase 58 U/L (46-116) Total Creatine Kinase 127 U/L (26-308) Total Protein 7.8 G/DL (6.4-8.2) Albumin 4.1 G/DL (3.4-5.0) Globulin 3.7 g/dL Albumin/Globulin Ratio 1.1 (1.0-2.7) Acetaminophen Level < 2 MCG/ML (10-30) L Serum Alcohol < 3 mg/dL Urine Color Pale yellow Urine Appearance Slightly cloudy Urine pH 6 (4.5-8.0) Urine Specific [place] 1.020 (1.005-1.035) Urine Protein Negative (NEGATIVE) Urine Glucose (UA) Negative (NEGATIVE) Urine Ketones 4+ (NEGATIVE) H Urine Blood 2+ (NEGATIVE) H Urine Nitrite Negative (NEGATIVE) Urine Bilirubin Negative (NEGATIVE) Urine Urobilinogen Normal MG/DL (0.0-1.0) Urine Leukocyte Esterase 1+ (NEGATIVE) H Urine RBC 0-2 /HPF (0 - 2) Urine WBC 0-2 /HPF (0 - 2) Urine Squamous Epithelial Cells Moderate /LPF (NONE/OCC) H Urine Bacteria Moderate /HPF (NONE) H Urine HCG, Qualitative Negative (NEGATIVE) Urine Opiates Screen Negative (NEGATIVE) Urine Barbiturates Screen Negative (NEGATIVE) Phencyclidine (PCP) Screen Negative (NEGATIVE) Urine Amphetamines Screen Negative (NEGATIVE) Urine Benzodiazepines Screen Negative (NEGATIVE) Urine Cocaine Screen Negative (NEGATIVE) Urine Marijuana (THC) Screen Positive (NEGATIVE) H EKG Diagnostic Results Rate: normal Rhythm: NSR ST Segments: no acute changes Rhythm Strip Diag. Results EP Interpretation: yes Rhythm: NSR, no PVC's, no ectopy Last Vital Signs Date Time Temp Pulse Resp B/P (MAP) Pulse Ox O2 Delivery O2 Flow Rate FiO2 03/02/20 17:47 61 18 102/58 99 03/02/20 17:44 98.2 Room Air Status: improved Disposition: HOME, SELF-CARE Condition: Improved Referrals: [facility] (PCP) Bib Del Real MD Mar 02, 2020 17:35
[2020-03-02 17:47] VITALS: BP 102/58
--- NOTE | 2020-03-03 12:54 | Cardiology Report ---
APPROVED REPORT EKG Measurement Heart [id number] <Conclusion> Sinus bradycardia Nonspecific T wave abnormality Abnormal ECG
== END 2020-03-02 17:44 | disposition home or self-care (01) ==
LOC: EMR 16:00
DX: G40.909 Epilepsy, unspecified, not intractable, without status epilepticus (principal); R51.9 Headache, unspecified; Z88.0 Allergy status to penicillin; Z88.1 Allergy status to other antibiotic agents
CPT/HCPCS: 36415; 80053; 80307; 81003; 81025; 82550; 85025; 87086; 93005; 96361; 96374; 96375; G0480; J1953; J2270; J2405; J7030; Z7502; 99284

== ENCOUNTER 2020-06-01 17:54 | Emergency (ER) | payer MEDICAID ==
[~2020-06-01] VITALS: Ht 154.9 cm; Wt 51.7 kg
--- NOTE | 2020-06-01 19:10 | NUR ---
ED Nurse Note: Patient is here complaining of abdominal pain, N/V and chest pain for the past three days. Patient is AOX4.
[2020-06-01] MEDS ORDERED: DiphenhydrAMINE 50mg/ml Inj IVP ONE (19:15)
[2020-06-01] MEDS ORDERED: Haloperidol Lactate 5 MG in D5W 55 ML IVPB ONE (19:15)
[2020-06-01 19:28] LABS: BASOPHILS % (AUTO) 0.7 % (0.0-2.0); HEMATOCRIT 40.2 % (37.0-47.0); HEMOGLOBIN 12.8 G/DL (12.0-16.0); LYMPHOCYTES % (AUTO) 7.5 % (20.0-45.0); MEAN CORPUSCULAR VOLUME 86 FL (80-99); NEUTROPHILS % (AUTO) 89.9 % (45.0-75.0); PLATELET COUNT 430 K/UL (150-450); RED BLOOD COUNT 4.67 M/UL (4.20-5.40); RED CELL DISTRIBUTION WIDTH 16.8 % (11.6-14.8); WHITE BLOOD COUNT 11.1 K/UL (4.8-10.8)
[2020-06-01 19:36] LABS: ANION GAP 14 mmol/L (5-15); BLOOD UREA NITROGEN 12 mg/dL (7-18); CALCIUM 9.3 MG/DL (8.5-10.1); CARBON DIOXIDE 24 MMOL/L (21-32); CHLORIDE 104 MMOL/L (98-107); CREATININE 0.9 MG/DL (0.55-1.30); POTASSIUM 3.6 MMOL/L (3.5-5.1); SODIUM 142 MMOL/L (136-145)
[2020-06-01 19:40] LABS: ALANINE AMINOTRANSFERASE 23 U/L (12-78); ALBUMIN 4.2 G/DL (3.4-5.0); ALKALINE PHOSPHATASE 50 U/L (46-116); ASPARTATE AMINO TRANSFERASE 19 U/L (15-37); BILIRUBIN,TOTAL 0.6 MG/DL (0.2-1.0)
--- NOTE | 2020-06-01 19:51 | Emergency Room Report ---
History of Present Illness General Chief Complaint: Abdominal Pain Source: Patient Present Illness HPI 20-year-old female presents to the emergency department complaining of 9 out of 10 severity epigastric burning pain with persistent vomiting x3 days. Patient reports that she does utilize marijuana products and has had issues with vomiting and marijuana in the past. She denies or suspicion of pre gnancy and reports that she is currently on her menstrual cycle. She does report some abdominal tenderness. She denies constipation, diarrhea, fevers or chills. She reports intermittent cramping sensation as well. She denies chest pain, palpitations, sore throat, headache or neck pain/stiffness. She denies dysuria, hematuria, urinary frequency or urgency. She denies blood in the vomitus or in her stool. Patient is reporting difficulty with keeping down food or fluids. She reports eating does make her symptoms worse. No other aggravating or relieving factors at this time. Allergies: Coded Allergies: AMOXICILLIN (Verified Allergy, Unknown, 05/23/18) PENICILLINS (Verified Allergy, Unknown, 05/23/18) Uncoded Allergies: PCN (Allergy, Unknown, 06/19/19) COVID-19 Screening Contact w/high risk pt: No Recent Travel to affected area: No Experienced COVID-19 symptoms?: No COVID-19 Testing performed PRODUCT DEVELOPMENT ENGINEER: No Patient History Past Medical History: see triage record Past Surgical History: none Pertinent Family History: none Social History: Reports: drug use - THC Last Menstrual Period: on now Now: No Reviewed Nursing Documentation: PMH: Agreed; PSxH: Agreed Nursing Documentation-PMH Past Medical History: No History, Except For Hx Cardiac Problems: No Hx Hypertension: No Hx Pacemaker: No Hx Asthma: No Hx COPD: No Hx Diabetes: No Hx Cancer: No Hx Gastrointestinal Problems: No Hx Dialysis: No Hx Neurological Problems: No Hx Cerebrovascular Accident: No Hx Seizures: Yes Review of Systems All Other Systems: negative except mentioned in HPI Physical Exam Vital Signs Date Time Temp Pulse Resp B/P (MAP) Pulse Ox O2 Delivery O2 Flow Rate FiO2 06/01/20 18:05 98.4 65 18 129/90 (103) 97 Room Air Sp02 EP Interpretation: reviewed, normal General Appearance: no apparent distress, alert, GCS 15, non-toxic Head: normocephalic, atraumatic Eyes: bilateral eye normal inspection, bilateral eye PERRL ENT: hearing grossly normal, normal voice, moist mucus membranes Neck: full range of motion Respiratory: chest non-tender, lungs clear, normal breath sounds, speaking full sentences Cardiovascular #1: regular rate, rhythm, no edema, normal capillary refill Gastrointestinal: normal bowel sounds, soft, no peritonitis, non-distended, no guarding, tenderness - EPigastric ttp. Rectal: deferred Genitourinary: normal inspection, no CVA tenderness Musculoskeletal: back normal, normal range of motion, gait/station normal, non- tender Neurologic: alert, motor strength/tone normal, oriented x3, sensory intact, responsive, speech normal Psychiatric: judgement/insight normal Skin: no rash, normal color, warm/dry Medical Decision Making PA Attestation Dr. Cedeno Is my supervising Physician whom patient management has been discussed with. Diagnostic Impression: Primary Impression: Cyclical vomiting syndrome Additional Impression: Marijuana smoker ER Course 20-year-old female presents to the emergency department complaining of 9 out of 10 severity epigastric burning pain with persistent vomiting x3 days. Patient reports that she does utilize marijuana products and has had issues with vomiting and marijuana in the past. She denies or suspicion of and reports that she is currently on her menstrual cycle. She does report some abdominal tenderness. She denies constipation, diarrhea, fevers or chills. She reports intermittent cramping sensation as well. She denies chest pain, palpitations, sore throat, headache or neck pain/stiffness. She denies dysuria, hematuria, urinary frequency or urgency. She denies blood in the vomitus or in her stool. Patient is reporting difficulty with keeping down food or fluids. She reports eating does make her symptoms worse. No other aggravating or relieving factors at this time. Ddx considered but are not limited to GE, colitis, acute appendicitis, SBO, Cyclical Vomiting secondary to THC, just to name a few. Vital signs: pt. 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 No evidence to suggest acute abdomen on physical exam. ORDERS: -CBC: Unremarkable -CMP: Unremarkable -Urine Hcg: Negative -UA: In line with patient reporting being on menstrual cycle there are RBCs and some blood present no evidence to suggest significant urinary infection -UDS: Positive only for marijuana ED INTERVENTIONS: -1000 NS iv hydration, - Haldol 5mg IVPB -25mg Benadryl IV Patient reports her symptoms have greatly improved she is able to tolerate oral fluids here in the ED without vomiting. Thus successfully passing the oral fluid challenge. -I do not identify an emergent condition at this time. With current presentation, pt. is stable for close outpatient follow up and conservative treatment. D/w pt. to return promptly to ED with worsening or new symptoms.- Pt. verbalizes' understanding and agreement with proposed treatment plan. DISCHARGE: At this time pt. is stable for d/c to home. Will provide printed patient care instructions, and any necessary prescriptions. Care plan and follow up instructions have been discussed with the patient prior to discharge. Labs Test 06/01/20 19:10 06/01/20 21:30 White Blood Count 11.1 K/UL (4.8-10.8) Red Blood Count 4.67 M/UL (4.20-5.40) Hemoglobin 12.8 G/DL (12.0-16.0) Hematocrit 40.2 % (37.0-47.0) Mean Corpuscular Volume 86 FL (80-99) Mean Corpuscular Hemoglobin 27.4 PG (27.0-31.0) Mean Corpuscular Hemoglobin Concent 31.8 G/DL (32.0-36.0) Red Cell Distribution Width 16.8 % (11.6-14.8) Platelet Count 430 K/UL (150-450) Mean Platelet Volume 6.8 FL (6.5-10.1) Neutrophils (%) (Auto) 89.9 % (45.0-75.0) Lymphocytes (%) (Auto) 7.5 % (20.0-45.0) Monocytes (%) (Auto) 2.0 % (1.0-10.0) Eosinophils (%) (Auto) 0.0 % (0.0-3.0) Basophils (%) (Auto) 0.7 % (0.0-2.0) Sodium Level 142 MMOL/L (136-145) Potassium Level 3.6 MMOL/L (3.5-5.1) Chloride Level 104 MMOL/L (98-107) Carbon Dioxide Level 24 MMOL/L (21-32) Anion Gap 14 mmol/L (5-15) Blood Urea Nitrogen 12 mg/dL (7-18) Creatinine 0.9 MG/DL (0.55-1.30) Estimat Glomerular Filtration Rate > 60 mL/min (>60) Glucose Level 127 MG/DL (74-106) Calcium Level 9.3 MG/DL (8.5-10.1) Total Bilirubin 0.6 MG/DL (0.2-1.0) Aspartate Amino Transf (AST/SGOT) 19 U/L (15-37) Alanine Aminotransferase (ALT/SGPT) 23 U/L (12-78) Alkaline Phosphatase 50 U/L (46-116) Total Protein 8.3 G/DL (6.4-8.2) Albumin 4.2 G/DL (3.4-5.0) Globulin 4.1 g/dL Albumin/Globulin Ratio 1.0 (1.0-2.7) Lipase 76 U/L (73-393) Urine Color Yellow Urine Appearance Slightly cloudy Urine pH 6 (4.5-8.0) Urine Specific [place] 1.020 (1.005-1.035) Urine Protein 2+ (NEGATIVE) Urine Glucose (UA) Negative (NEGATIVE) Urine Ketones 4+ (NEGATIVE) Urine Blood 5+ (NEGATIVE) Urine Nitrite Negative (NEGATIVE) Urine Bilirubin Negative (NEGATIVE) Urine Urobilinogen Normal MG/DL (0.0-1.0) Urine Leukocyte Esterase 1+ (NEGATIVE) Urine RBC Tntc /HPF (0 - 2) Urine WBC 0-2 /HPF (0 - 2) Urine Squamous Epithelial Cells Moderate /LPF (NONE/OCC) Urine Bacteria Few /HPF (NONE) Urine HCG, Qualitative Negative (NEGATIVE) Urine Opiates Screen Negative (NEGATIVE) Urine Barbiturates Screen Negative (NEGATIVE) Phencyclidine (PCP) Screen Negative (NEGATIVE) Urine Amphetamines Screen Negative (NEGATIVE) Urine Benzodiazepines Screen Negative (NEGATIVE) Urine Cocaine Screen Negative (NEGATIVE) Urine Marijuana (THC) Screen Positive (NEGATIVE) EKG Diagnostic Results Troponin ordered: No EKG Time: 19:34 Rate: normal Rhythm: NSR - [address] Segments: no acute changes Other Impression Prolonged QT with Qtc of 597 (EKG performed after administration of Haldol ) ASA given to the pt in ED: No PA Scribe Text This Interpretation was scribed by AIDA Cartwright. Last Vital Signs Date Time Temp Pulse Resp B/P (MAP) Pulse Ox O2 Delivery O2 Flow Rate FiO2 2/23/21 18:05 98.4 65 18 129/90 (103) 97 Room Air Status: improved Disposition: HOME, SELF-CARE Condition: Stable Scripts Capsaicin (CAPSAICIN) 60 Gm Cream..g. 1 APPLIC TP Q6HR for Vomiting- apply to stomach are, #60 GM Prov: Hannah Cartwright 06/01/20 Referrals: [facility] (PCP) Patient Instructions: Nausea and Vomiting, Adult, [id number] Additional Instructions: Discontinue cannabinoid use as this is significantly contributing to your symptoms of persistent vomiting. Use prescribed capsaicin cream at home to control your symptoms. Take medications as directed. Follow up with a Primary Care Provider in 3-5 days, even if your symptoms have resolved. Return sooner to ED if new symptoms occur, or current symptoms become worse. - Please note that this Emergency Department Report was dictated using [employer] assistant technology software, occasionally this can lead to erroneous entry secondary to interpretation by the dictation equipment. Hannah Cartwright Jun 01, 2020 19:51
--- NOTE | 2020-06-01 20:30 | NUR ---
Patient is resting in bed comfortable, verbalized that this is the first time she has not vomited in three days, she is feeling way better. Denies any pain at this time.
[2020-06-01 20:39] VITALS: BP 94/56
[2020-06-01 21:43] LABS: APPEARANCE,URINE SLIGHTLY CLOUDY; BILIRUBIN, URINE NEGATIVE (NEGATIVE); GLUCOSE, URINE (UA) NEGATIVE (NEGATIVE); KETONES,URINE 4+ (NEGATIVE); LEUKOCYTE ESTERASE ,URINE 1+ (NEGATIVE); NITRITE,URINE NEGATIVE (NEGATIVE); PH,URINE 6 (4.5-8.0); PROTEIN,URINE 2+ (NEGATIVE); UROBILINOGEN,URINE NORMAL MG/DL (0.0-1.0)
[2020-06-01 21:45] LABS: COLOR,URINE YELLOW
[2020-06-01] MEDS ORDERED: CAPSAICIN60 GM TP (22:03)
--- NOTE | 2020-06-04 13:59 | Cardiology Report ---
APPROVED REPORT EKG Measurement Heart [id number] <Conclusion> Normal sinus rhythm Rightward axis T wave abnormality, consider lateral ischemia Prolonged QT Abnormal ECG
== END 2020-06-01 22:15 | disposition home or self-care (01) ==
LOC: EMR 19:01
DX: R11.15 Cyclical vomiting syndrome unrelated to migraine (principal); F12.90 Cannabis use, unspecified, uncomplicated; Z88.0 Allergy status to penicillin
CPT/HCPCS: 36415; 80053; 80307; 81003; 81025; 83690; 85025; 93005; 96361; 96374; 96375; J1200; J1630; J7030; Z7502; 99284

== ENCOUNTER 2020-06-21 21:57 | Emergency (ER) | payer MEDICAID ==
[~2020-06-21] VITALS: Ht 154.9 cm; Wt 52.2 kg
[~2020-06-21 21:57] MED LIST changes: -COLACE100 MG ORAL; -IBUPROFEN600 M1 ORAL
[2020-06-21] MEDS ORDERED: Ketorolac 30mg Inj IV ONE (22:15)
--- NOTE | 2020-06-21 22:31 | Emergency Room Report ---
History of Present Illness General Chief Complaint: Abdominal Pain Present Illness HPI 20-year-old female with a history of epilepsy here with lower abdominal pain. Patient said that for the past 24 hours she has been having lower midline abdominal pain and cramping that she says "feels like a cramp but much worse." Patient says that she took Plan B about 1 week ago. She says that 4 days ago she had "some light bleeding for a few days" that subsided and then began to have the lower abdominal pain and some vaginal bleeding that started yesterday. Has taken Plan B in the past and says that she felt similar symptoms then. Last menstrual period was 3 weeks ago. Pain is cramping in nature, located in the lower midline abdomen, does not otherwise radiate. No headache, vision change, fevers, chills, chest pain, palpitations, shortness of breath, back pain, diarrhea, dysuria. 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 Nursing Documentation-PMH Hx Cardiac Problems: No Hx Hypertension: No Hx Pacemaker: No Hx Asthma: No Hx COPD: No Hx Diabetes: No Hx Cancer: No Hx Gastrointestinal Problems: No Hx Dialysis: No Hx Neurological Problems: No Hx Cerebrovascular Accident: No Hx Seizures: Yes Review of Systems All Other Systems: negative except mentioned in HPI Physical Exam Vital Signs Date Time Temp Pulse Resp B/P (MAP) Pulse Ox O2 Delivery O2 Flow Rate FiO2 06/21/20 22:00 98.6 100 14 96/62 (73) 96 Room Air Sp02 EP Interpretation: reviewed, normal General Appearance: no apparent distress, alert, non-toxic Head: normocephalic, atraumatic Eyes: bilateral eye normal inspection, bilateral eye PERRL ENT: hearing grossly normal, normal pharynx, no angioedema, normal voice Neck: full range of motion, supple/symm/no masses Respiratory: chest non-tender, lungs clear, normal breath sounds, speaking full sentences Cardiovascular #1: regular rate, rhythm, no edema Cardiovascular #2: 2+ carotid (R), 2+ carotid (L), 2+ radial (R), 2+ radial (L), 2+ dorsalis pedis (R), 2+ dorsalis pedis (L) Gastrointestinal: normal bowel sounds, soft, non-distended, no guarding, no rebound, other - Mild lower midline abdominal tenderness on palpation. No rebound or guarding Rectal: deferred Genitourinary: normal inspection, no CVA tenderness Musculoskeletal: back normal, normal range of motion, calf tenderness, gait/station normal, non-tender Neurologic: alert, motor strength/tone normal, oriented x3, sensory intact, responsive, speech normal Psychiatric: judgement/insight normal, memory normal, mood/affect normal, no suicidal/homicidal ideation Reflexes: 3+ bicep (R), 3+ bicep (L), 3+ tricep (R), 3+ tricep (L), 3+ knee (R), 3+ knee (L) Lymphatic: no adenopathy Medical Decision Making Diagnostic Impression: Primary Impression: Dysmenorrhea Additional Impression: UTI (urinary tract infection) ER Course ddx: Hernia, bladder or kidney stones, diverticulitis, enteritis, appendicitis, genital pathology Laboratory Tests Test 06/21/20 22:26 White Blood Count 15.2 K/UL (4.8-10.8) H Red Blood Count 4.12 M/UL (4.20-5.40) L Hemoglobin 10.8 G/DL (12.0-16.0) L Hematocrit 35.7 % (37.0-47.0) L Mean Corpuscular Volume 87 FL (80-99) Mean Corpuscular Hemoglobin 26.3 PG (27.0-31.0) L Mean Corpuscular Hemoglobin Concent 30.4 G/DL (32.0-36.0) L Red Cell Distribution Width 16.2 % (11.6-14.8) H Platelet Count 261 K/UL (150-450) Mean Platelet Volume 7.3 FL (6.5-10.1) Neutrophils (%) (Auto) 78.1 % (45.0-75.0) H Lymphocytes (%) (Auto) 14.3 % (20.0-45.0) L Monocytes (%) (Auto) 4.9 % (1.0-10.0) Eosinophils (%) (Auto) 0.8 % (0.0-3.0) Basophils (%) (Auto) 1.9 % (0.0-2.0) Urine Color Pale yellow Urine Appearance Slightly cloudy Urine pH 7 (4.5-8.0) Urine Specific [place] 1.005 (1.005-1.035) Urine Protein Negative (NEGATIVE) Urine Glucose (UA) Negative (NEGATIVE) Urine Ketones Negative (NEGATIVE) Urine Blood 1+ (NEGATIVE) H Urine Nitrite Negative (NEGATIVE) Urine Bilirubin Negative (NEGATIVE) Urine Urobilinogen Normal MG/DL (0.0-1.0) Urine Leukocyte Esterase 2+ (NEGATIVE) H Urine RBC 2-4 /HPF (0 - 2) H Urine WBC 5-10 /HPF (0 - 2) H Urine Squamous Epithelial Cells Few /LPF (NONE/OCC) Urine Bacteria Few /HPF (NONE) Urine HCG, Qualitative Negative (NEGATIVE) Sodium Level 141 MMOL/L (136-145) Potassium Level 3.5 MMOL/L (3.5-5.1) Chloride Level 105 MMOL/L (98-107) Carbon Dioxide Level 28 MMOL/L (21-32) Anion Gap 8 mmol/L (5-15) Blood Urea Nitrogen 10 mg/dL (7-18) Creatinine 0.8 MG/DL (0.55-1.30) Estimated Glomerular Filtration Rate > 60 mL/min (>60) Glucose Level 101 MG/DL (74-106) Calcium Level 8.9 MG/DL (8.5-10.1) Total Bilirubin 0.6 MG/DL (0.2-1.0) Aspartate Amino Transferase (AST) 14 U/L (15-37) L Alanine Aminotransferase (ALT) 20 U/L (12-78) Alkaline Phosphatase 56 U/L (46-116) Total Protein 7.1 G/DL (6.4-8.2) Albumin 3.7 G/DL (3.4-5.0) Globulin 3.4 g/dL Albumin/Globulin Ratio 1.1 (1.0-2.7) Lipase 135 U/L (73-393) 20-year-old female here with lower abdominal pain. Patient was hemodynamically stable in the emergency department and had a very benign physical examination. She was given a dose of Toradol and had complete resolution of her symptoms. Urinalysis did show some evidence of urinary tract infection. Review of patient's records show that she has been given prescriptions for Macrobid which she has tolerated. Has a penicillin allergy. Given prescription for Macrobid. She was also complaining of constipation was given a prescription for Colace. CBC revealed a mild leukocytosis however given her benign physical examination there is no indication for any imaging at this time. She was told to return with any worsening symptoms. She expressed understanding and was discharged. Last Vital Signs Date Time Temp Pulse Resp B/P (MAP) Pulse Ox O2 Delivery O2 Flow Rate FiO2 06/21/20 22:00 98.6 100 14 96/62 (73) 96 Room Air Scripts Ibuprofen* (MOTRIN*) 600 Mg Tablet 600 MG ORAL FOUR TIMES A DAY, #20 TAB 0 Refills Prov: Juan Felix M.D. 06/21/20 Docusate Sodium* (COLACE*) 100 Mg Capsule 100 MG ORAL DAILY for 7 Days, CAP Prov: Juan Felix M.D. 06/21/20 Nitrofurantoin Monohyd/M-Cryst* (MACROBID 100 MG*) 100 Mg Capsule 100 MG ORAL EVERY 12 HOURS for 5 Days, CAP Prov: Juan Felix M.D. 06/21/20 Juan Felix M.D. Jun 21, 2020 22:30
[2020-06-21 22:35] VITALS: BP 96/62
--- NOTE | 2020-06-21 22:38 | NUR ---
ED Nurse Note: URINE AND BLOOD SPECIMEN SENT
[2020-06-21 22:52] LABS: ANION GAP 8 mmol/L (5-15); BLOOD UREA NITROGEN 10 mg/dL (7-18); CALCIUM 8.9 MG/DL (8.5-10.1); CARBON DIOXIDE 28 MMOL/L (21-32); CHLORIDE 105 MMOL/L (98-107); CREATININE 0.8 MG/DL (0.55-1.30); POTASSIUM 3.5 MMOL/L (3.5-5.1); SODIUM 141 MMOL/L (136-145)
[2020-06-21 22:56] LABS: ALANINE AMINOTRANSFERASE 20 U/L (12-78); ALBUMIN 3.7 G/DL (3.4-5.0); ALBUMIN/GLOBULIN RATIO 1.1 (1.0-2.7); ALKALINE PHOSPHATASE 56 U/L (46-116); ASPARTATE AMINO TRANSFERASE 14 U/L (15-37); BILIRUBIN,TOTAL 0.6 MG/DL (0.2-1.0)
[2020-06-21 22:57] LABS: BILIRUBIN, URINE NEGATIVE (NEGATIVE); COLOR,URINE PALE YELLOW; GLUCOSE, URINE (UA) NEGATIVE (NEGATIVE); KETONES,URINE NEGATIVE (NEGATIVE); NITRITE,URINE NEGATIVE (NEGATIVE); PH,URINE 7 (4.5-8.0); PROTEIN,URINE NEGATIVE (NEGATIVE); UROBILINOGEN,URINE NORMAL MG/DL (0.0-1.0)
[2020-06-21 22:59] LABS: BASOPHILS % (AUTO) 1.9 % (0.0-2.0); EOSINOPHILS % (AUTO) 0.8 % (0.0-3.0); HEMATOCRIT 35.7 % (37.0-47.0); HEMOGLOBIN 10.8 G/DL (12.0-16.0); LYMPHOCYTES % (AUTO) 14.3 % (20.0-45.0); MEAN CORPUSCULAR VOLUME 87 FL (80-99); MONOCYTES % (AUTO) 4.9 % (1.0-10.0); NEUTROPHILS % (AUTO) 78.1 % (45.0-75.0); PLATELET COUNT 261 K/UL (150-450); RED BLOOD COUNT 4.12 M/UL (4.20-5.40); RED CELL DISTRIBUTION WIDTH 16.2 % (11.6-14.8); WHITE BLOOD COUNT 15.2 K/UL (4.8-10.8)
[2020-06-21 23:13] LABS: APPEARANCE,URINE SLIGHTLY CLOUDY; LEUKOCYTE ESTERASE ,URINE 2+ (NEGATIVE)
[2020-06-21] MEDS ORDERED: IBUPROFEN600 M1 ORAL (23:18)
[2020-06-21] MEDS ORDERED: COLACE100 MG ORAL (23:18)
[2020-06-21] MEDS ORDERED: NITROFURANTOIN100 M2 ORAL (23:18)
[2020-06-21 23:38] VITALS: BP 102/60
== END 2020-06-21 23:40 | disposition home or self-care (01) ==
LOC: EMR 22:15
DX: N39.0 Urinary tract infection, site not specified (principal); N94.6 Dysmenorrhea, unspecified; Z88.0 Allergy status to penicillin; G40.909 Epilepsy, unspecified, not intractable, without status epilepticus; D72.829 Elevated white blood cell count, unspecified
CPT/HCPCS: 36415; 80053; 81003; 81025; 83690; 85025; 96374; J1885; Z7502; 99284

== ENCOUNTER → 2020-06-21 | Emergency (ER) | payer MEDICAID ==
[~2020-06-21] MED LIST changes: +CAPSAICIN60 GM TP; +COLACE100 MG ORAL; +IBUPROFEN600 M1 ORAL
--- NOTE | 2020-06-21 14:20 | NUR ---
ED Nurse Note:NO ANSWER IN WR
--- NOTE | 2020-06-21 14:55 | NUR ---
ED Nurse Note:PT NOT IN WR, APPARENT LWBS
--- NOTE | 2020-06-21 21:56 | Emergency Room Report ---
History of Present Illness General Chief Complaint: To Be Triaged Present Illness Allergies: Coded Allergies: AMOXICILLIN (Verified Allergy, Unknown, 05/23/18) PENICILLINS (Verified Allergy, Unknown, 05/23/18) Uncoded Allergies: PCN (Allergy, Unknown, 06/19/19) COVID-19 Screening Contact w/high risk pt: No Recent Travel to affected area: No Experienced COVID-19 symptoms?: No Nursing Documentation-PMH Hx Cardiac Problems: No Hx Hypertension: No Hx Pacemaker: No Hx Asthma: No Hx COPD: No Hx Diabetes: No Hx Cancer: No Hx Gastrointestinal Problems: No Hx Dialysis: No Hx Neurological Problems: No Hx Cerebrovascular Accident: No Hx Seizures: Yes Medical Decision Making ER Course Patient left without being seen or triaged Disposition: LEFT W/OUT BEING SEEN Condition: Unknown Referrals: [facility] (PCP) Main Pena MD Jun 21, 2020 21:56
== END | disposition left against medical advice (07) ==
LOC: EMR 14:26
DX: Z53.21 Procedure and treatment not carried out due to patient leaving prior to being seen by health care provider (principal); Z88.0 Allergy status to penicillin